=== PATIENT | male | born 1970 | race Caucasian/White ===

== ENCOUNTER 2016-08-18 09:34 | Emergency (ER) | payer OTHER ==
[~2016-08-18] VITALS: Ht 182.9 cm; Wt 98.9 kg
[~2016-08-18 09:34] MED LIST: ALBU0.08 INH; FLUT1INH INH; METH10SO PO
[2016-08-18 09:37] VITALS: BP 127/80; PULSE 77; TEMP 36.7; Ht 182.9 cm; Wt 98.9 kg
[2016-08-18 09:41] VITALS: O2SAT 94
[2016-08-18] MEDS ORDERED: FLUT1INH INH (09:56)
[2016-08-18] MEDS ORDERED: FLUT1INH PO (09:56)
[2016-08-18] MEDS ORDERED: PRED20TA PO (09:56)
[2016-08-18] MEDS ORDERED: VNTHFA/IN INH (09:56)
--- NOTE | 2016-08-18 10:02 | EMERGENCY ROOM VISIT NOTE ---
History Report prepared by Suki: Anshul Herrera Under the Supervision of: Dr. Sofia Barrios M.D. First contact with patient: 09:42 Chief Complaint: RESPIRATORY PROBLEMS Stated Complaint: DIFFICULTY BREATHING Nursing Triage Summary: "I'm having difficulty breathing. I'm out of Breo" per pt. History of Present Illness The patient is a 46 year old male who presents to the Emergency Room with complaints of persistent respiratory problems that started a few days ago. He says his insurance was recently canceled and it just got reinstated. As a result , the patient is now out of his powder inhaler, Breo Ellipta. The patient says he "cannot breathe" without this specific inhaler. He is here for a Breo Ellipta prescription as well as a steroid prescription. The patient is at this time trying to find a new primary care physician. Source of History: patient Onset: A few days ago Position: other (global - respiratory problems) Symptom Intensity: "cannot breathe" without Breo Ellipta Timing: other (persistent) Modifying Factors (Relieving): other (Breo Ellipta powder inhaler) Associated Symptoms: + SOB Note: No other associated symptoms. Review of Systems See HPI for pertinent positives & negatives. A total of 10 systems reviewed and were otherwise negative. Past Medical & Surgical Medical Problems: (1) Herniated disc (2) Laceration of right hand (3) Laceration of right hand (4) Pain, dental (5) PE (pulmonary embolism) Family History Cancer Heart disease Social History Smoking Status: Current Every Day Smoker Alcohol Use: none Drug Use: other Marital Status: single Occupation Status: unemployed Current/Historical Medications Scheduled Albuterol Soln (Proventil 0.083% 2.5MG/3ML), 2.5 MG INH QID Fluticasone Furoate-Vilanterol (Breo Ellipta), 1 INHA INH DAILY Methadone Hcl (Methadone Hcl), 151 MG PO DAILY Allergies Coded Allergies: No Known Allergies (Verified , 12/08/15) Physical Exam Vital Signs Date Time Temp Pulse Resp B/P Pulse Ox O2 Delivery O2 Flow Rate FiO2 08/18/16 09:41 94 Room Air 08/18/16 09:37 36.7 77 20 127/80 94 Room Air Physical Exam CONSTITUTIONAL: No distress. HEENT: No icterus, moist mucous membranes NECK: No meningismus, trachea is midline. CARDIOVASCULAR: Regular rate, normal perfusion RESPIRATORY: Mild wheezing bilaterally. GASTROINTESTINAL: Non-tender GENITOURINARY: No flank tenderness MUSCULOSKELETAL: Full range of motion NEUROLOGIC: No acute gross focal deficits. PSYCHIATRIC: Normal affect SKIN: Normal for ethnicity. Medical Decision & Procedures ED Course 0949: Past medical records reviewed. The patient was evaluated in room B7. A complete history and physical examination was performed. The patient verbally expressed understanding and agreement of the treatment plan. The patient will be discharged. Medical Decision Differential diagnoses include: wheezing, asthma. 46-year-old presented to the emergency room for medication refill of his inhaled steroid as well as albuterol as needed. He has no other complaints was mildly wheezing in all shah on exam. Attempted to electronically treated with prescriptions but the computer would not let me do so. Handwritten prescription for meds written. Patient had no other concerns or request today. Impression Primary Impression: Wheezing Additional Impression: Asthma Scribe Attestation The scribe's documentation has been prepared under my direction and personally reviewed by me in its entirety. I confirm that the note above accurately reflects all work, treatment, procedures, and medical decision making performed by me. Departure Information Dispostion Home / Self-Care Referrals No Doctor, Assigned (PCP) Forms HOME CARE DOCUMENTATION FORM, IMPORTANT VISIT INFORMATION, WORK / SCHOOL INSTRUCTIONS Patient Instructions A Signature Page, ED Wheezing, My [facility] Additional Instructions Rxs: Breo Ellipta, Albuterol MDI + spacer, Prednisone 20mg x 10 days.
== END 2016-08-18 10:15 | disposition home or self-care (01) ==
LOC: C.EDB 09:36
DX: J45.909 Unspecified asthma, uncomplicated (principal); F17.200 Nicotine dependence, unspecified, uncomplicated; Z79.899 Other long term (current) drug therapy

== ENCOUNTER 2023-08-29 10:18 | Inpatient (IN) ==
--- NOTE | 2023-08-29 10:53 | Emergency Department Note ---
Impression & Plan Acute renal failure, Abdominal pain ED Provider Note NAME: DRAKE ESPINOZA AGE: 53 SEX: M : 1970 ARRIVES VIA: Ambulance INFORMANT: Patient, ED PROVIDER(S): Harjeet Reid MD CHIEF COMPLAINT: Abdominal pain HPI: This is a 53-year-old male history of opiate use disorder currently on methadone presenting for abdominal pain. Patient states that he was here 2 days ago for similar abdominal pain. The abdominal pain previously was less severe and thought to be due to constipation. Patient had a CT imaging that did confirm this constipation. He was given enemas and magnesium citrate. Since then he has had numerous l loose stools. He notes that his pain is in his lower quadrants at this time and are worse than when he came in 2 days ago. He notes no nausea, vomiting. He states he did not get his methadone this morning, he came directly from methadone clinic via EMS. He was given 15 mg of Toradol and route. Denies any chest pain, pleurisy. ROS: See above HPI for pertinent positives & negatives. A total of 10 systems reviewed and were otherwise negative. PAST MEDICAL HISTORY: See Below PAST SURGICAL HISTORY: See Below FAMILY HISTORY: See Below SOCIAL HISTORY: See Below HOME MEDICATIONS: See Below ALLERGIES: See Below VITALS: See Below PHYSICAL EXAMINATION: General: resting comfortably in no acute distress Head: Normocephalic and atraumatic Eyes: Normal inspection, extraocular muscles intact Ear, nose, throat: Normal external exam Neck: Normal range of motion Respiratory: lungs clear to auscultation bilaterally Cardiovascular: Regular rate/rhythm, no murmur GI: Guarding, no rebound, diffusely tender Extremities: nontender, moves all extremities Neuro: The patient awake and alert, appropriately conversive, no focal deficits, symmetric faces Skin: Warm, dry, and intact MEDICAL DECISION MAKING: This is a 53-year-old male presenting for abdominal pain. Patient appears mildly uncomfortable will give Tylenol. Otherwise with patient tachycardia, will give fluid resuscitation as patient has been having profuse diarrhea -Blood work is significant abnormal with a new creatinine elevation to over 4 with previous value done less than 48 hours ago 0.69 -Patient's potassium hemolyzed x 2, [id number] was used in the meantime that shows slight hyperkalemia 5.3 -EKG reviewed showing no signs of peaked T waves or prolonged QRS -Patient also has significant hyponatremia hypochloremia, acidosis noted with low CO2, anion gap -Elevated lactate to 2.8 -Upon reevaluation, patient has been sleeping comfortably while here reevaluation of abdomen is less tender after Tylenol administration -Initially ordered for CT ab/pelvis with contrast however with EMIL, will use Noncon -CT abdomen/pelvis does reveal progressive nonspecific colitis, otherwise significant proved in stool burden from previous CT image -Patient CT chest shows emphysema without acute active chest process -Patient had multiple times after fluid resuscitation, shows to be improving vital signs and abdominal exam -Patient will require admission for clinical dehydration, EMIL, significant electrolyte abnormalities Differential diagnosis: SBO, bowel perforation, ischemic bowel, stercoral colitis ER treatment provided: See below Diagnostics interpreted by me: ECG: ECG independently interpreted by me with normal sinus rhythm, rate of 94, normal axis, normal IL, normal QRS, normal QTc, no ST segment elevations consistent with STEMI criteria Cardiac Monitoring: An order was placed for continuous cardiac monitoring. The monitor shows a rate of 92 with sinus rhythm. Laboratory studies: As stated above and show below. Imaging studies: See below. Critical Care Note: I have personally spent 30 minutes of critical care time in the direct management of this patient. This includes bedside care, interpretation of diagnostic studies, and testing, discussion with consultants, patient, and family members, and other required patient management activities. This 30 minutes is in excess of all separately billable procedures. Past Med/Surg History Medical History (Updated 08/29/23 @ 17:10 by Harjeet Reid MD) History of pulmonary embolism URI (upper respiratory infection) Opioid withdrawal COPD (chronic obstructive pulmonary disease) PE (pulmonary embolism) (09/27/13) Surgical History No significant past surgical history Social History Smoking Status: Current every day smoker Tobacco Type: Cigarettes Hx Alcohol Use: No Hx Substance Use: Yes Preferred Language: Romanian Communication Ability: Effective Beliefs That Will Affect Care: None Current Living Situation: Family Feels Safe at Home: Yes Allergies Allergies Allergy/AdvReac Type Severity Reaction Status Date / Time No Known Allergies Allergy Verified 08/28/23 01:45 Home Meds Home Medications Medication Instructions Recorded Confirmed methadone 10 mg/5 mL oral solution 136 mg PO DAILY 07/07/18 08/29/23 Results & Data (ED) Vital Signs Vital Signs - 24 hr 08/29/23 10:27 08/29/23 10:30 08/29/23 10:32 Temperature 36.5 C Temperature Source Oral Pulse Rate 109 H 108 H 106 H Pulse Rate [Right Finger] Pulse Rhythm Regular Respiratory Rate 24 24 Respiratory Effort / Characteristics Non-Labored Spontaneous Respiratory Depth Normal Respiratory Pattern Regular Blood Pressure 123/91 Blood Pressure [Right Arm] Blood Pressure Mean 101 Blood Pressure Mean [Right Arm] Pulse Oximetry 94 95 Oxygen Delivery Method Room Air Room Air Sepsis Recent Fever Within 48 Hours No Sepsis New/Unexplained Change in Mental Status N/A Sepsis Action Taken by Nursing Physician Notified 08/29/23 13:11 Temperature Temperature Source Pulse Rate Pulse Rate [Right Finger] 95 H Pulse Rhythm Respiratory Rate 20 Respiratory Effort / Characteristics Non-Labored Spontaneous Respiratory Depth Normal Respiratory Pattern Blood Pressure Blood Pressure [Right Arm] 158/95 H Blood Pressure Mean Blood Pressure Mean [Right Arm] 116 Pulse Oximetry 96 Oxygen Delivery Method Room Air Sepsis Recent Fever Within 48 Hours Sepsis New/Unexplained Change in Mental Status Sepsis Action Taken by Nursing Laboratory Data 08/29/23 10:47 08/29/23 16:21 Lab Results 08/29/23 08/29/23 08/29/23 Range/Units 10:47 11:40 12:10 WBC 17.09 H (4.8-10.8) K/ul RBC 6.34 H (4.70-6.10) M/uL Hgb 19.2 H (14.0-18.0) g/dl POC Hgb (14.0-18.0) g/dl Hct 52.5 H (42.0-52.0) % POC Hct (42-52) % MCV 82.8 (80.0-100.0) fL MCH 30.3 (25.0-34.0) pg MCHC 36.6 H (32.0-36.0) g/dL RDW Std Deviation 37.9 (36.4-46.3) fL RDW Coeff of Benny 12.5 (11.5-14.5) % Plt Count 250 (130-400) K/uL MPV 11.7 (9.4-12.4) fL Immature Gran % (Auto) 0.5 % Neut % (Auto) 71.3 % Lymph % (Auto) 16.7 % [place] % (Auto) 10.5 % Eos % (Auto) 0.1 % Baso % (Auto) 0.9 % Neut # (Auto) 12.18 H (1.40-6.50) K/uL Lymph # (Auto) 2.86 (1.20-3.40) K/uL [place] # (Auto) 1.80 H (0.11-0.59) K/uL Eos # (Auto) 0.01 (0.00-0.50) K/uL Baso # (Auto) 0.15 (0.00-0.20) K/uL Immature Gran # (Auto) 0.09 (0.01-0.20) K/uL VBG pH (7.36-7.41) VBG pCO2 (38-50) mmHg VBG pO2 mmHg VBG HCO3 mmol/L VBG O2 Saturation % VBG Base Excess mEq/L POC Sodium (135-144) mmol/L Sodium 122 L D (136-145) mmol/L POC Potassium (3.3-5.0) mmol/L Potassium TNP TNP TNP POC Chloride (101-112) mmol/L Chloride 90 L (98-107) mmol/L Carbon Dioxide 16 L (21-32) mmol/L POC Total CO2 (24-31) mmol/L Anion Gap 16 H (3-11) POC Anion Gap (16-25) mmol/L POC BUN (7-18) mg/dl BUN 52 H D (6-23) mg/dl Creatinine 4.24 H D (0.6-1.4) mg/dl POC Creatinine (0.6-1.3) mg/dl Est Cr Clr Drug Dosing 22.6 ml/min Est GFR ( Amer) 17.5 ml/min Est GFR (Non-Af Amer) 15.1 ml/min BUN/Creatinine Ratio 12.3 (10-20) Glucose 358 H* (70-99(Fasting)) mg/dl POC Glucose (other) (70-99) mg/dl Lactate 2.8 H* (0.4-2.0) mmol/L Calcium 11.9 H (8.6-10.3) mg/dl POC Ioniz Calcium Kt (1.12-1.32) mmol/l Total Bilirubin 1.1 H D (0.2-1.0) mg/dl AST TNP TNP TNP ALT 50 (7-52) U/L Alkaline Phosphatase 70 (34-104) U/L Total Protein 8.3 (6.0-8.3) gm/dl Albumin 3.6 (3.4-5.0) gm/dl Globulin 4.7 H (2.5-4.0) gm/dl Albumin/Globulin Ratio 0.8 L (0.9-2) Lipase 7 L (11-82) U/L 08/29/23 08/29/23 Range/Units 12:14 12:42 WBC (4.8-10.8) K/ul RBC (4.70-6.10) M/uL Hgb (14.0-18.0) g/dl POC Hgb 18.7 H (14.0-18.0) g/dl Hct (42.0-52.0) % POC Hct 55 H (42-52) % MCV (80.0-100.0) fL MCH (25.0-34.0) pg MCHC (32.0-36.0) g/dL RDW Std Deviation (36.4-46.3) fL RDW Coeff of Benny (11.5-14.5) % Plt Count (130-400) K/uL MPV (9.4-12.4) fL Immature Gran % (Auto) % Neut % (Auto) % Lymph % (Auto) % [place] % (Auto) % Eos % (Auto) % Baso % (Auto) % Neut # (Auto) (1.40-6.50) K/uL Lymph # (Auto) (1.20-3.40) K/uL [place] # (Auto) (0.11-0.59) K/uL Eos # (Auto) (0.00-0.50) K/uL Baso # (Auto) (0.00-0.20) K/uL Immature Gran # (Auto) (0.01-0.20) K/uL VBG pH 7.34 L (7.36-7.41) VBG pCO2 32 L (38-50) mmHg VBG pO2 43 mmHg VBG HCO3 17 mmol/L VBG O2 Saturation 67.9 % VBG Base Excess -7.1 mEq/L POC Sodium 123 L (135-144) mmol/L Sodium (136-145) mmol/L POC Potassium 5.3 H (3.3-5.0) mmol/L Potassium POC Chloride 94 L (101-112) mmol/L Chloride (98-107) mmol/L Carbon Dioxide (21-32) mmol/L POC Total CO2 19 L (24-31) mmol/L Anion Gap (3-11) POC Anion Gap 16.0 (16-25) mmol/L POC BUN 66 H (7-18) mg/dl BUN (6-23) mg/dl Creatinine (0.6-1.4) mg/dl POC Creatinine 4.4 H (0.6-1.3) mg/dl Est Cr Clr Drug Dosing ml/min Est GFR ( Amer) ml/min Est GFR (Non-Af Amer) ml/min BUN/Creatinine Ratio (10-20) Glucose (70-99(Fasting)) mg/dl POC Glucose (other) 336 H (70-99) mg/dl Lactate 2.5 H* (0.4-2.0) mmol/L Calcium (8.6-10.3) mg/dl POC Ioniz Calcium Kt 1.21 (1.12-1.32) mmol/l Total Bilirubin (0.2-1.0) mg/dl AST ALT (7-52) U/L Alkaline Phosphatase (34-104) U/L Total Protein (6.0-8.3) gm/dl Albumin (3.4-5.0) gm/dl Globulin (2.5-4.0) gm/dl Albumin/Globulin Ratio (0.9-2) Lipase (11-82) U/L Administered Medications Discontinued Medications Acetaminophen (Ofirmev) 1,000 mg in 100 mls @ 400 mls/hr IV NOW STA Stop: 08/29/23 11:33 Last Infusion: 08/29/23 11:39 Dose: Infused Documented By: Admin: 08/29/23 11:24 Dose: 400 mls/hr Documented By: YAKELIN Sodium Chloride (Nss) 1,000 mls @ 999 mls/hr IV .Q1H1M ONE Stop: 08/29/23 12:19 Last Infusion: 08/29/23 12:25 Dose: Infused Documented By: Admin: 08/29/23 11:24 Dose: 999 mls/hr Documented By: YAKELIN Sodium Chloride (Nss) 1,000 mls @ 999 mls/hr IV .Q1H1M ONE Stop: 08/29/23 13:01 Last Infusion: 08/29/23 14:07 Dose: Infused Documented By: Admin: 08/29/23 13:01 Dose: 999 mls/hr Documented By: HERO Sodium Chloride (Nss) 1,000 mls @ 999 mls/hr IV .Q1H1M ONE Stop: 08/29/23 15:31 Last Admin: 08/29/23 16:59 Dose: 999 mls/hr Documented By: CAR Imaging Data Radiologist's Impression: Abdomen/Pelvis CT 08/29/23 11:[address] WITHOUT CONTRAST CT DOSE: 2212.39 mGy.cm HISTORY: Generalized abdominal pain. Elevated creatinine. TECHNIQUE: Multiaxial CT images of the abdomen and pelvis were performed without contrast. A dose lowering technique was utilized adhering to the principles of ALARA. COMPARISON STUDY: Abdomen and pelvis CT 08/28/2023. FINDINGS: Mild dependent changes seen within the lungs posteriorly. No pneumoperitoneum. No pneumatosis. No acute fractures identified. The gallbladder is mildly distended. There are few punctate gallstones noted. No gallbladder wall thickening. Hepatic steatosis. Subtle nodular contour to the liver suggestive of early cirrhosis. The unenhanced pancreas, spleen, and adrenal glands are unremarkable. There are few small left renal stones, unchanged. No right renal calculi. No ureteral calculi. No hydronephrosis. Subcentimeter retroperitoneal lymph nodes remain unchanged. Normal caliber abdominal aorta. No pelvic lymphadenopathy or pelvic free fluid. Normal bladder. Suboptimal evaluation for bowel pathology due to the lack of intravenous and oral contrast. There are no dilated loops of bowel to suggest an obstruction. Normal appendix. The moderate to large amount of well-formed stool seen within the colon on the prior study has essentially resolved in the interval. There is mild circumferential thickening involving the majority of the transverse colon, descending colon, and proximal sigmoid colon with mild pericolonic fat stranding. This is consistent with a nonspecific colitis. There are few colonic diverticula. No evidence for acute diverticulitis. IMPRESSION: 1. The moderate to large amount of well-formed stool seen within the colon on the prior study has essentially resolved in the interval. 2. There is mild circumferential thickening involving the majority of the transverse colon, descending colon, and proximal sigmoid colon with mild pericolonic fat stranding. This has progressed in the interval and is consistent with a nonspecific colitis. This could be due to an infectious, inflammatory, or ischemic process. 3. Left-sided nephrolithiasis. No ureteral stones. No hydronephrosis. 4. Normal appendix. 5. Hepatic steatosis with suggestion of early cirrhosis. 6. Distended gallbladder containing a few punctate gallstones. No gallbladder wall thickening. 7. Additional findings as described above. ACT 112: Negative or not required by law. Electronically signed by: Ryan Dutta M.D. 08/29/2023 1:[address] 08/29/23 12:16 CT SCAN OF THE CHEST WITHOUT IV CONTRAST CLINICAL HISTORY: Dyspnea COMPARISON STUDY: Chest CT dated 09/10/2015. Chest x-ray dated 07/07/2018. TECHNIQUE: CT scan of the thorax was performed from the thoracic inlet to the upper abdomen. Images are reviewed in the axial, sagittal, and coronal planes. IV contrast was not administered for this examination as per the referring clinician. A dose lowering technique was utilized adhering to the principles of ALARA. The examination is degraded by motion artifact. FINDINGS: Thyroid: Imaged portions of the thyroid gland are normal in size and attenuation. Thoracic aorta: The thoracic aorta is normal in caliber and demonstrates bovine variant arch anatomy. Heart: The heart is normal in size and without pericardial effusion. Lungs and pleural spaces: Evaluation of the lung parenchyma is moderately degraded by motion artifact. Emphysematous changes observed. Scarring/atelectasis is noted at the lung bases. No airspace consolidation typical for pneumonia or pleural effusions identified. Mediastinum: There is no mediastinal lymphadenopathy. [place]: Not well assessed without IV contrast. Axillae: There is no axillary lymphadenopathy. Upper abdomen: The liver is steatotic. Partially visualized upper abdominal viscera is otherwise within normal limits. Skeletal structures: No lytic or blastic bony lesions are seen. Arthritic change is seen in the shoulders. IMPRESSION: Emphysematous change with no active disease in the chest. ACT 112: Negative or not required by law. Electronically signed by: Shayan Mendoza M.D. 08/29/2023 1:19 PM Discharge Plan Visit Data Chief Complaint: Abdominal Pain Stated Complaint: AB PAIN ED Provider: Harjeet Reid Discharge Problem: Acute renal failure, Abdominal pain Patient Disposition: Admitted As Inpatient Discharge Instructions Interventions: ED Discharge Assessment Last Done: 08/29/23 15:03
[2023-08-29 11:14] LABS: Basophils # (auto) 0.15 K/uL (0.00-0.20); Basophils % (auto) 0.9 %; Eosinophils # (auto) 0.01 K/uL (0.00-0.50); Eosinophils % (auto) 0.1 %; Hematocrit (blood only) 52.5 % (42.0-52.0); Hemoglobin 19.2 g/dl (14.0-18.0); Immature Granulocytes # (auto) 0.09 K/uL (0.01-0.20); Immature Granulocytes % (auto) 0.5 %; Lymphocytes # (auto) 2.86 K/uL (1.20-3.40); Lymphocytes % (auto) 16.7 %; Mean Corpuscular Hemoglobin 30.3 pg (25.0-34.0); Mean Corpuscular Hgb Conc 36.6 g/dL (32.0-36.0); Mean Corpuscular Volume 82.8 fL (80.0-100.0); Mean Platelet Volume 11.7 fL (9.4-12.4); Monocytes % (auto) 10.5 %; Neutrophils # (auto) 12.18 K/uL (1.40-6.50); Neutrophils % (auto) 71.3 %; Platelet Count 250 K/uL (130-400); RDW Coefficient of Variation 12.5 % (11.5-14.5); RDW Standard Deviation 37.9 fL (36.4-46.3); Red Blood Count 6.34 M/uL (4.70-6.10); White Blood Count 17.09 K/ul (4.8-10.8)
[2023-08-29] MEDS ORDERED: ACETAMINOPHEN 1,000 MG/100 ML VIAL IV STA (11:19)
[2023-08-29] MEDS ORDERED: SODIUM CHLORIDE 0.9% 1,000 ML IV ONE ×3 (11:19→14:31)
[2023-08-29 11:27] LABS: Alanine Aminotransferase 50 U/L (7-52); Albumin Globulin Ratio 0.8 (0.9-2); Albumin Level 3.6 gm/dl (3.4-5.0); Alkaline Phosphatase 70 U/L (34-104); Anion Gap 16 (3-11); BUN Creatinine Ratio 12.3 (10-20); Bilirubin,Total 1.1 mg/dl (0.2-1.0); Blood Urea Nitrogen 52 mg/dl (6-23); Calcium 11.9 mg/dl (8.6-10.3); Carbon Dioxide 16 mmol/L (21-32); Chloride 90 mmol/L (98-107); Creatinine Clr Calc Pharmacy 22.6 ml/min; Est GFR (African American) 17.5 ml/min; Est GFR (Non-African American) 15.1 ml/min; Globulin 4.7 gm/dl (2.5-4.0); Glucose 358 mg/dl (70-99(Fasting)); Lipase 7 U/L (11-82); Sodium 122 mmol/L (136-145); Total Protein 8.3 gm/dl (6.0-8.3)
[2023-08-29 12:29] LABS: iSTAT Creatinine 4.4 mg/dl (0.6-1.3); iSTAT Hemoglobin 18.7 g/dl (14.0-18.0); iSTAT Ionized Calcium 1.21 mmol/l (1.12-1.32); iSTAT Potassium 5.3 mmol/L (3.3-5.0)
[2023-08-29 13:02] LABS: Base Excess VBG -7.1 mEq/L; HCO3 VBG 17 mmol/L; Oxygen Saturation VBG 67.9 %; PCO2 VBG 32 mmHg (38-50); PO2 VBG 43 mmHg; pH VBG 7.34 (7.36-7.41)
--- NOTE | 2023-08-29 13:07 | CT Scan Report ---
ABDOMEN AND PELVIS CT WITHOUT CONTRAST CT DOSE: 2212.39 mGy.cm HISTORY: Generalized abdominal pain. Elevated creatinine. TECHNIQUE: Multiaxial CT images of the abdomen and pelvis were performed without contrast. A dose lo wering technique was utilized adhering to the principles of ALARA. COMPARISON STUDY: Abdomen and pelvis CT 08/28/2023. FINDINGS: Mild dependent changes seen within the lungs posteriorly. No pneumoperitoneum. No pneumatos is. No acute fractures identified. The gallbladder is mildly distended. There are few punctate gallst ones noted. No gallbladder wall thickening. Hepatic steatosis. Subtle nodular contour to the liver olivarez ggestive of early cirrhosis. The unenhanced pancreas, spleen, and adrenal glands are unremarkable. Th ere are few small left renal stones, unchanged. No right renal calculi. No ureteral calculi. No hydro nephrosis. Subcentimeter retroperitoneal lymph nodes remain unchanged. Normal caliber abdominal aorta . No pelvic lymphadenopathy or pelvic free fluid. Normal bladder. Suboptimal evaluation for bowel pat hology due to the lack of intravenous and oral contrast. There are no dilated loops of bowel to sugge st an obstruction. Normal appendix. The moderate to large amount of well-formed stool seen within the colon on the prior study has essentially resolved in the interval. There is mild circumferential thi ckening involving the majority of the transverse colon, descending colon, and proximal sigmoid colon with mild pericolonic fat stranding. This is consistent with a nonspecific colitis. There are few col onic diverticula. No evidence for acute diverticulitis. IMPRESSION: 1. The moderate to large amount of well-formed stool seen within the colon on the prior study has ess entially resolved in the interval. 2. There is mild circumferential thickening involving the majority of the transverse colon, descendin g colon, and proximal sigmoid colon with mild pericolonic fat stranding. This has progressed in the i nterval and is consistent with a nonspecific colitis. This could be due to an infectious, inflammator y, or ischemic process. 3. Left-sided nephrolithiasis. No ureteral stones. No hydronephrosis. 4. Normal appendix. 5. Hepatic steatosis with suggestion of early cirrhosis. 6. Distended gallbladder containing a few punctate gallstones. No gallbladder wall thickening. 7. Additional findings as described above. ACT 112: Negative or not required by law. Electronically signed by: Ryan Dutta M.D. 08/29/2023 1:06 PM
--- NOTE | 2023-08-29 13:21 | CT Scan Report ---
CT SCAN OF THE CHEST WITHOUT IV CONTRAST CLINICAL HISTORY: Dyspnea COMPARISON STUDY: Chest CT dated 09/10/2015. Chest x-ray dated 07/07/2018. TECHNIQUE: CT scan of the thorax was performed from the thoracic inlet to the upper abdomen. Images are reviewed in the axial, sagittal, and coronal planes. IV contrast was not administered for this ex amination as per the referring clinician. A dose lowering technique was utilized adhering to the stefani nciples of KATHY. The examination is degraded by motion artifact. FINDINGS: Thyroid: Imaged portions of the thyroid gland are normal in size and attenuation. Thoracic aorta: The thoracic aorta is normal in caliber and demonstrates bovine variant arch anatomy. Heart: The heart is normal in size and without pericardial effusion. Lungs and pleural spaces: Evaluation of the lung parenchyma is moderately degraded by motion artifact . Emphysematous changes observed. Scarring/atelectasis is noted at the lung bases. No airspace consol idation typical for pneumonia or pleural effusions identified. Mediastinum: There is no mediastinal lymphadenopathy. [place]: Not well assessed without IV contrast. Axillae: There is no axillary lymphadenopathy. Upper abdomen: The liver is steatotic. Partially visualized upper abdominal viscera is otherwise with in normal limits. Skeletal structures: No lytic or blastic bony lesions are seen. Arthritic change is seen in the shoul ders. IMPRESSION: Emphysematous change with no active disease in the chest. ACT 112: Negative or not required by law. Electronically signed by: Shayan Mendoza M.D. 08/29/2023 1:19 PM
--- NOTE | 2023-08-29 14:31 | History & Physical Report ---
Date of Service August 29, 2023 Assessment & Plan (1) Abdominal pain, acute: (2) Sepsis: (3) Lactic acidosis: (4) EMIL (acute kidney injury): (5) Acute hyponatremia: Admission and Anticipated Discharge Date Admission Date: This is a 53 yr old M who has a hx of COPD, GERD, hx of narcotic addiction, migraine and tobacco abuse who presented to ED 2/2 abdominal pain. Acute abdominal pain Colitis Possible sepsis -pt meets criteria 2/2 tachycardia,leukocytosis and presumed infection with colitis Lactic acidosis admit to tele pt will receive 3L of IVF in ED IV Cipro and Flagyl were ordered blood cultures ordered, UA ordered but not collected consult gastroenterology etiology - possibly infectious vs ischemic NPO EMIL pre renal 2/2 dehydration and GI Loss continue with aggressive fluid repletion cr 4.24 today, on 08/28 was 0.69 serial BMP Acute hyponatremia corrected sodium s 128 again 2/2 dehydration serial labs Hyperglycemia no previous dx of T2DM will obtain a1c in a.m lantus/novolog per protocol for now History of narcotic abuse currently receiving methadone ED pharmacist called [facility], he has not had a dose since 08/27. Will give 136mg dose tomorrow and then recommend reaching out to [facility] 08/31 to determine next dose as he is on tapering dose History of tobacco Encourage cessation DVT ppx: SQ Lovenox Dispo: PCU FULL CODE PCP: Matias Pt was seen and examined in collaboration with Dr. Lopez, please see addendum A total of 71 minutes was spent coordinating, documenting, and providing care for this patient excluding time spent in the performance of separately billed services. This included personally viewing all current laboratories and imaging studies, medication reconciliation, outpatient chart review, and discussion with specialists. History of Present Illness Chief Complaint: Abdominal pain x 2 days. Primary Care Provider: Aspen Salcedo This is a 53 yr old M who has a FULL CDOE of COPD, GERD, hx of narcotic addiction, migraine and tobacco abuse who presented to ED 2/2 abdominal pain. He presented to ED evening of 08/27 and into enrollment consultant hours of 08/28. He has a CT a/p which showed significant constipation. He received enema and mag citrate which resulted in a bowel movement. He was discharged home. Since this time he has had a significant amount of bowel movements ~ 40. He also continues to have diffuse persistent and worsening abd pain. He therefore presented back to the hospital. He denies any f/c/s, dizziness, chest pain, URI sx, vomiting, hematemesis, melena, hematochezia. He does have a headache. He has not had food for last 1.5 days. He has been keeping down water. He denies dysuria, increased freq/urg with urination and he has been urinating less. He smokes 1/2ppd but hasn't smoked in 1.5 days. He is a prior opiate abuser and currently on a taper of methadone. He denies alcohol use. Allergies Allergy/AdvReac Type Severity Reaction Status Date / Time No Known Allergies Allergy Verified 08/28/23 01:45 Home Medications Medication Instructions Recorded Confirmed Type methadone 10 mg/5 mL oral solution 136 mg PO DAILY 07/07/18 08/29/23 History Past Med/Surg History Medical History (Updated 08/29/23 @ 17:10 by Harjeet Reid MD) History of pulmonary embolism URI (upper respiratory infection) Opioid withdrawal COPD (chronic obstructive pulmonary disease) PE (pulmonary embolism) (09/27/13) Surgical History No significant past surgical history Social History Smoking Status: Current every day smoker Tobacco Type: Cigarettes Cigarettes Per Day: 8; Second Hand Exposure: No; Do You Dip or Chew Tobacco: No; Tobacco Cessation Education Requested by Patient: No Hx Alcohol Use: No Preferred Language: Serbian Communication Ability: Effective Investigator Narcotics Required: No Beliefs That Will Affect Care: None Current Living Situation: Family Current Living Situation Comment: BROTHER Other Information That Helps Us Care for You: No Feels Safe at Home: Yes Safety Concerns: Feels Safe At This Time Assistive Devices: None Review of Systems Review of Systems: All systems reviewed & are unremarkable except as noted in HPI & below Physical Exam Physical Exam: please refer to Dr. Lopez addendum for physical exam findings. Results & Data Results & Data Vital Signs (Past 12 Hours) Vital Signs Temp Pulse Pulse Resp BP BP Pulse Ox 08/29/23 13:11 95 H 20 158/95 H 96 08/29/23 10:32 106 H 08/29/23 10:30 108 H 24 95 08/29/23 10:27 36.5 C 109 H 24 123/91 94 O2 Del Method 08/29/23 13:11 Room Air 08/29/23 10:32 08/29/23 10:30 Room Air 08/29/23 10:27 Room Air Laboratory Results I have independently reviewed and interpreted patient's admitting labs including CBC, CMP,VBG, lipase Diagnostic Findings Abdomen/Pelvis CT 08/29/23 11:[address] WITHOUT CONTRAST CT DOSE: 2212.39 mGy.cm HISTORY: Generalized abdominal pain. Elevated creatinine. TECHNIQUE: Multiaxial CT images of the abdomen and pelvis were performed without contrast. A dose lowering technique was utilized adhering to the principles of ALARA. COMPARISON STUDY: Abdomen and pelvis CT 08/28/2023. FINDINGS: Mild dependent changes seen within the lungs posteriorly. No pneumoperitoneum. No pneumatosis. No acute fractures identified. The gallbladder is mildly distended. There are few punctate gallstones noted. No gallbladder wall thickening. Hepatic steatosis. Subtle nodular contour to the liver suggestive of early cirrhosis. The unenhanced pancreas, spleen, and adrenal glands are unremarkable. There are few small left renal stones, unchanged. No right renal calculi. No ureteral calculi. No hydronephrosis. Subcentimeter retroperitoneal lymph nodes remain unchanged. Normal caliber abdominal aorta. No pelvic lymphadenopathy or pelvic free fluid. Normal bladder. Suboptimal evaluation for bowel pathology due to the lack of intravenous and oral contrast. There are no dilated loops of bowel to suggest an obstruction. Normal appendix. The moderate to large amount of well-formed stool seen within the colon on the prior study has essentially resolved in the interval. There is mild circumferential thickening involving the majority of the transverse colon, descending colon, and proximal sigmoid colon with mild pericolonic fat stranding. This is consistent with a nonspecific colitis. There are few colonic diverticula. No evidence for acute diverticulitis. IMPRESSION: 1. The moderate to large amount of well-formed stool seen within the colon on the prior study has essentially resolved in the interval. 2. There is mild circumferential thickening involving the majority of the tr ansverse colon, descending colon, and proximal sigmoid colon with mild pericolonic fat stranding. This has progressed in the interval and is consistent with a nonspecific colitis. This could be due to an infectious, inflammatory, or ischemic process. 3. Left-sided nephrolithiasis. No ureteral stones. No hydronephrosis. 4. Normal appendix. 5. Hepatic steatosis with suggestion of early cirrhosis. 6. Distended gallbladder containing a few punctate gallstones. No gallbladder wall thickening. 7. Additional findings as described above. ACT 112: Negative or not required by law. Electronically signed by: Ryan Dutta M.D. 08/29/2023 1:[address] 08/29/23 12:16 CT SCAN OF THE CHEST WITHOUT IV CONTRAST CLINICAL HISTORY: Dyspnea COMPARISON STUDY: Chest CT dated 09/10/2015. Chest x-ray dated 07/07/2018. TECHNIQUE: CT scan of the thorax was performed from the thoracic inlet to the upper abdomen. Images are reviewed in the axial, sagittal, and coronal planes. IV contrast was not administered for this examination as per the referring clinician. A dose lowering technique was utilized adhering to the principles of ALARA. The examination is degraded by motion artifact. FINDINGS: Thyroid: Imaged portions of the thyroid gland are normal in size and attenuation. Thoracic aorta: The thoracic aorta is normal in caliber and demonstrates bovine variant arch anatomy. Heart: The heart is normal in size and without pericardial effusion. Lungs and pleural spaces: Evaluation of the lung parenchyma is moderately degraded by motion artifact. Emphysematous changes observed. Scarring/atelectasis is noted at the lung bases. No airspace consolidation typical for pneumonia or pleural effusions identified. Mediastinum: There is no mediastinal lymphadenopathy. [place]alia: Not well assessed without IV contrast. Axillae: There is no axillary lymphadenopathy. Upper abdomen: The liver is steatotic. Partially visualized upper abdominal viscera is otherwise within normal limits. Skeletal structures: No lytic or blastic bony lesions are seen. Arthritic change is seen in the shoulders. IMPRESSION: Emphysematous change with no active disease in the chest. ACT 112: Negative or not required by law. Electronically signed by: Shayan Mendoza M.D. 08/29/2023 1:19 PM Medications Administered Medication List Discontinued Medications Acetaminophen (Ofirmev) 1,000 mg in 100 mls @ 400 mls/hr IV NOW STA Stop: 08/29/23 11:33 Last Infusion: 08/29/23 11:39 Dose: Infused Documented By: Admin: 08/29/23 11:24 Dose: 400 mls/hr Documented By: YAKELIN Sodium Chloride (Nss) 1,000 mls @ 999 mls/hr IV .Q1H1M ONE Stop: 08/29/23 12:19 Last Infusion: 08/29/23 12:25 Dose: Infused Documented By: Admin: 08/29/23 11:24 Dose: 999 mls/hr Documented By: YAKELIN Sodium Chloride (Nss) 1,000 mls @ 999 mls/hr IV .Q1H1M ONE Stop: 08/29/23 13:01 Last Infusion: 08/29/23 14:07 Dose: Infused Documented By: Admin: 08/29/23 13:01 Dose: 999 mls/hr Documented By: HERO ECG Rate (beats per minute): 94 Rhythm: normal sinus Additional Comments: I have independently reviewed and interpreted patient's admitting EKG which revealed: 94 bpm, nsr, q wave noted in I II and AVF, no st t wave change COVID-19 Results Results COVID-19 Adm Lab Results: RBC 6.34 M/uL (4.70-6.10) H 08/29/23 WBC 17.09 K/ul (4.8-10.8) H 08/29/23 Hgb 19.2 g/dl (14.0-18.0) H 08/29/23 Hct 52.5 % (42.0-52.0) H 08/29/23 Plt Count 250 K/uL (130-400) 08/29/23 Neutrophils (%) (Auto) 71.3 % 08/29/23 Lymphocytes (%) (Auto) 16.7 % 08/29/23 Monocytes # (Auto) 1.80 K/uL (0.11-0.59) H 08/29/23 Eosinophils # (Auto) 0.01 K/uL (0.00-0.50) 08/29/23 Immature Granulocyte % (Auto) 0.5 % 08/29/23 Neutrophils # (Auto) 12.18 K/uL (1.40-6.50) H 08/29/23 Lymphocytes # (Auto) 2.86 K/uL (1.20-3.40) 08/29/23 Monocytes # (Auto) 1.80 K/uL (0.11-0.59) H 08/29/23 Eosinophils # (Auto) 0.01 K/uL (0.00-0.50) 08/29/23 Basophils # (Auto) 0.15 K/uL (0.00-0.20) 08/29/23 Immature Granulocyte # (Auto) 0.09 K/uL (0.01-0.20) 4 Na 123 mmol/L (136-145) L 08/29/23 K 4.5 mmol/L (3.5-5.1) 08/29/23 Cl 95 mmol/L (98-107) L 08/29/23 CO2 15 mmol/L (21-32) L 08/29/23 Anion Gap 13 (3-11) H 08/29/23 BUN 56 mg/dl (6-23) H 08/29/23 Creatinine 4.29 mg/dl (0.6-1.4) H 08/29/23 BUN/Creatinine Ratio 13.1 (10-20) 08/29/23 Glucose Level 288 mg/dl (70-99(Fasting)) H 08/29/23 Ca 9.9 mg/dl (8.6-10.3) 08/29/23 Phosphorus Level 5.7 mg/dl (2.5-4.9) H 08/29/23 Total Bilirubin 1.1 mg/dl (0.2-1.0) H 08/29/23 AST/SGOT 22 U/L (13-39) 08/29/23 ALT/SGPT 50 U/L (7-52) 08/29/23 Alkaline Phosphatase 70 U/L (34-104) 08/29/23 Total Protein 8.3 gm/dl (6.0-8.3) 08/29/23 Albumin 3.6 gm/dl (3.4-5.0) 08/29/23 Globulin 4.7 gm/dl (2.5-4.0) H 08/29/23 Albumin/Globulin Ratio 0.8 (0.9-2) L 08/29/[address] 08/29/23 Code Status & VTE Plan Code Status FULL CODE VTE Prophylaxis Plan VTE Prophylaxis will be ordered: Yes Supervising Physician Co-Signing Physician Notes History and physical exam performed by me 53 year old man with history of opioid use disorder currently on methadone who presents with worsening abd pain. Had presented to ER 2 days ago with abd pain, was found to be constipated and treated with enema and bowel regimen. Reported he has been having diarrhea since dc from ER, stated over 40 times, watery BM, nonbloody He reports worsening generalized abd pain, crampy, severe, not referred. No fever, chills Reports some SOB. No cough, sorethroat, congestion. Smokes 10 cig per day Reports anorexia, reduced urine output. No dysuria, freq, urgency On exam, General: Ill looking, in no distress Eyes: PERRL, conjunctivae normal, not pale, anicteric sclerae, EOM intact bilaterally ENMT: Dry oral mucosa Respiratory: Normal respiratory effort, no respiratory distress, lungs clear to auscultation, no crackles and no wheezes Cardiovascular: Tachycardic, S1 S2 Gastrointestinal (Abdomen): Abdomen is not distended, soft,+ generalized tenderness, +bowel sounds Musculoskeletal: No pedal edema Neurologic: Alert and oriented x 3, No focal weakness, sensation grossly intact Psychiatric: Alert and oriented x 3, euthymic affect Labs notable for WBC 17, Hb 19.2, HCt 52.5, Na 123 (127 corrected for hyperglycemia), K 5.3, AGAP 16, Bicarb 16, BUN 52, Cr 4.24, Glucose 358, Lactate 2.8-2.5, Abd CT today show moderate to large stool seen in CT from yesterday in ER has essentially resolved. However, there is mild circumferential thickening of transverse, descendgin and proximal sigmoid colon. Left sided nephrolithiasis without ureteral stone/hydronephrosis Acute kidney injury Dehydration Colitis Possible Sepsis Hyponatremia Elevated lactic acid EMIL likely due to GI losses from diarrhea Cr 4.24 today, was 0.69 yesterday Hyponatremia likely due to GI losses. Hypovolemic hyponatremia Got 2L IVF NSS bolus in ER Patient needs more hydration. Get repeat BMP, lactate Give another IVF Will put on bowel rest Patient does meet criteria for SIRS with leukocytosis and tachycardia. Hence possible Sepsis due to colitis Get blood cultures Repeat lactate Get procal IV cipro and flagyl Bowel rest GI consult. Monitor hyponatremia Other plans as detailed by Fabiola Zamora PA-C I spent a total of 50 minutes coordinating, documenting and providing care for this patient excluding time spent in performance of separately billed services
[2023-08-29 14:46] LABS: Potassium 4.4 mmol/L (3.5-5.1)
[2023-08-29] MEDS ORDERED: CIPROFLOXACIN / D5W 400 MG/200 ML BAG IV STA (15:07)
[2023-08-29] MEDS ORDERED: metroNIDAZOLE 500 MG/100 ML BAG IV STA (15:08)
[2023-08-29 16:22] LABS: Anion Gap 13 (3-11); BUN Creatinine Ratio 13.1 (10-20); Blood Urea Nitrogen 56 mg/dl (6-23); Calcium 9.9 mg/dl (8.6-10.3); Carbon Dioxide 15 mmol/L (21-32); Chloride 95 mmol/L (98-107); Creatinine Clr Calc Pharmacy 22.4 ml/min; Est GFR (African American) 17.3 ml/min; Est GFR (Non-African American) 14.9 ml/min; Glucose 288 mg/dl (70-99(Fasting)); Magnesium 2.5 mg/dl (1.7-2.4); Phosphorus 5.7 mg/dl (2.5-4.9); Sodium 123 mmol/L (136-145)
[2023-08-29 16:34] LABS: Base Excess VBG -8.1 mEq/L; HCO3 VBG 15 mmol/L; PCO2 VBG 25 mmHg (38-50); PO2 VBG 63 mmHg; pH VBG 7.39 (7.36-7.41)
[2023-08-29] MEDS ORDERED: SODIUM CHLORIDE 0.9% 500 ML IV ONE (16:42)
[2023-08-29] MEDS ORDERED: CARBOHYDRATES FOR HYPOGLYCEMIA PO PRN (16:55)
[2023-08-29] MEDS ORDERED: LACTATED RINGER'S 1,000 ML IV SCH (16:55)
[2023-08-29] MEDS ORDERED: GLUCAGON FOR INJ 1 MG VIAL SQ PRN (16:55)
[2023-08-29] MEDS ORDERED: GLUCOSE 40% GEL 15 GM TUBE PO PRN (16:55)
[2023-08-29] MEDS ORDERED: DEXTROSE 50% 50 ML SYRINGE IV PRN (16:55)
[2023-08-29] MEDS ORDERED: GLUCOSE 10 TAB/TUBE PO PRN (16:55)
[2023-08-29] MEDS ORDERED: PATIENT'S OWN CONTROLLED MED 1 PO PRN (17:19)
[2023-08-29] MEDS: INSULIN ASPART PER UNIT CHARGE SC SCH ×2 (17:36→21:27)
[2023-08-29] MEDS ORDERED: PHARMACY GLYCEMIC MGMT CONSULT PRN (18:33)
[2023-08-29 18:36] LABS: Appearance Urine Clear (Clear); Bacteria Urine Automated Negative (Negative); Bilirubin Urine Negative (Negative); Blood Urine Negative (Negative); Color Urine Yellow; Glucose Urine UA 2+ (Negative); Ketones Urine Trace (Negative); Leukocyte Esterase Urine Negative (Negative); Nitrite Urine Negative (Negative); Protein Urine 2+ (Negative); RBC Urine Automated 0-4 /hpf (0-4); Specific Gravity Urine 1.013 (1.000-1.030); Urobilinogen Urine Negative (Negative)
[2023-08-29] MEDS: SODIUM CHLORIDE 0.9% 1,000 ML IV SCH (18:40)
--- NOTE | 2023-08-29 19:19 | Pharmacy Report ---
Pharmacy Glycemic Short Note 2 - Date of Service August 29, 2023 - Glycemic Short BSG Results (Last 24 hours): 08/29/23 08/29/23 08/29/23 10:47 12:14 15:45 Glucose 358 H* 288 H POC Glucose POC Glucose (other) 336 H 08/29/23 17:25 Glucose POC Glucose 306 H* POC Glucose (other) OUTPATIENT ANTIDIABETIC REGIMEN: * n/a ASSESSMENT: * 53 year old admitted with ongoing abdominal pain/nausea and vomiting. PMHx significant for COPD, GERD, narcotic addiction. Patient also with significant EMIL. Pharmacy consulted for glycemic management as BSGs in 300s - A1c ordered for tomorrow * Conservative scale for basal added on at HS along with novolog. Patient NPO PLAN FOR INPATIENT GLYCEMIC CONTROL: * Hold outpatient oral diabetes medications * Basal insulin * Lantus 0-8 units SQ BID * Bolus insulin * NovoLog per scale ACHS or Q6hrs while NPO * Goal Range: Low 120 mg/dL - High 160 mg/dL * Correction Factor: 45 mg/dL/unit * Nutritional / Prandial insulin per carb ratio of 1 unit per 15 grams CHO consumed
[2023-08-29] MEDS: ACETAMINOPHEN 325 MG TAB PO PRN (20:08)
[2023-08-29 20:26] LABS: BUN Creatinine Ratio 13.6 (10-20); Calcium 9.1 mg/dl (8.6-10.3); Creatinine Clr Calc Pharmacy 22.5 ml/min; Est GFR (African American) 17.4 ml/min; Potassium 4.2 mmol/L (3.5-5.1)
[2023-08-29] MEDS ORDERED: LANTUS PER UNIT CHARGE SQ SCH (21:00)
[2023-08-29] MEDS: ENOXAPARIN INJ 30 MG/0.3 ML SYR SQ SCH (21:43)
[2023-08-29 23:25] LABS: BUN Creatinine Ratio 14.2 (10-20); Calcium 9.2 mg/dl (8.6-10.3); Creatinine Clr Calc Pharmacy 22.6 ml/min; Est GFR (African American) 17.5 ml/min; Est GFR (Non-African American) 15.1 ml/min; Potassium 4.2 mmol/L (3.5-5.1)
[2023-08-30] MEDS: metroNIDAZOLE 500 MG/100 ML BAG IV SCH ×3 (01:06→16:45)
[2023-08-30] MEDS: INSULIN ASPART PER UNIT CHARGE SC SCH ×7 (01:06→23:46)
[2023-08-30] MEDS: SODIUM CHLORIDE 0.9% 1,000 ML IV SCH ×3 (02:26→15:26)
[2023-08-30] MEDS ORDERED: Nursing to Pharmacy Communication SCH (04:15)
[2023-08-30 04:28] LABS: BUN Creatinine Ratio 15.2 (10-20); Calcium 8.9 mg/dl (8.6-10.3); Creatinine Clr Calc Pharmacy 22.4 ml/min; Est GFR (African American) 17.3 ml/min; Est GFR (Non-African American) 14.9 ml/min; Potassium 4.1 mmol/L (3.5-5.1)
--- NOTE | 2023-08-30 07:55 | Pharmacy Report ---
Pharmacy Glycemic Short Note 2 - Date of Service August 30, 2023 - Glycemic Short BSG Results (Last 24 hours): 08/29/23 08/29/23 08/29/23 10:47 12:14 15:45 Glucose 358 H* 288 H POC Glucose POC Glucose (other) 336 H 08/29/23 08/29/23 08/29/23 17:25 19:53 20:13 Glucose 262 H POC Glucose 306 H* 278 H POC Glucose (other) 08/29/23 08/30/23 08/30/23 22:34 00:14 03:24 Glucose 242 H 215 H POC Glucose 285 H POC Glucose (other) 08/30/23 08/30/23 03:48 07:18 Glucose POC Glucose 226 H 218 H POC Glucose (other) OUTPATIENT ANTIDIABETIC REGIMEN: * n/a ASSESSMENT: 08/30/22 * Patient received 24 units of insulin yesterday, 10 units basal, BSGs remain in 200s, increase basal and tighten CF/CR and goal range. 08/29/22 * 53 year old admitted with ongoing abdominal pain/nausea and vomiting. PMHx significant for COPD, GERD, narcotic addiction. Patient also with significant EMIL. Pharmacy consulted for glycemic management as BSGs in 300s - A1c ordered for tomorrow * Conservative scale for basal added on at HS along with novolog. Patient NPO PLAN FOR INPATIENT GLYCEMIC CONTROL: * Basal insulin * Lantus 0-15 units SQ BID * Bolus insulin * NovoLog per scale ACHS or Q6hrs while NPO * Goal Range: Low 110 mg/dL - High 140 mg/dL * Correction Factor: 20 mg/dL/unit * Nutritional / Prandial insulin per carb ratio of 1 unit per 7 grams CHO consumed
[2023-08-30] MEDS: LANTUS PER UNIT CHARGE SQ SCH ×2 (08:25→20:44)
[2023-08-30] MEDS: METHADONE ORAL SOLN 2 MG/ML PO SCH (08:35)
[2023-08-30 08:42] LABS: Basophils # (auto) 0.07 K/uL (0.00-0.20); Basophils % (auto) 0.7 %; Eosinophils # (auto) 0.12 K/uL (0.00-0.50); Eosinophils % (auto) 1.1 %; Hematocrit (blood only) 43.3 % (42.0-52.0); Hemoglobin 15.5 g/dl (14.0-18.0); Immature Granulocytes # (auto) 0.06 K/uL (0.01-0.20); Immature Granulocytes % (auto) 0.6 %; Lymphocytes # (auto) 2.63 K/uL (1.20-3.40); Lymphocytes % (auto) 24.9 %; Mean Corpuscular Hemoglobin 30.1 pg (25.0-34.0); Mean Corpuscular Hgb Conc 35.8 g/dL (32.0-36.0); Mean Corpuscular Volume 84.1 fL (80.0-100.0); Mean Platelet Volume 11.5 fL (9.4-12.4); Monocytes # (auto) 1.09 K/uL (0.11-0.59); Monocytes % (auto) 10.3 %; Neutrophils # (auto) 6.61 K/uL (1.40-6.50); Neutrophils % (auto) 62.4 %; Platelet Count 197 K/uL (130-400); RDW Coefficient of Variation 12.7 % (11.5-14.5); RDW Standard Deviation 38.9 fL (36.4-46.3); Red Blood Count 5.15 M/uL (4.70-6.10); White Blood Count 10.58 K/ul (4.8-10.8)
[2023-08-30 08:51] LABS: Creatinine Clr Calc Pharmacy 23.6 ml/min; Est GFR (African American) 18.5 ml/min; Est GFR (Non-African American) 15.9 ml/min; Potassium 4.2 mmol/L (3.5-5.1)
[2023-08-30 08:52] LABS: Albumin Globulin Ratio 0.8 (0.9-2); Albumin Level 2.8 gm/dl (3.4-5.0); BUN Creatinine Ratio 15.5 (10-20); Bilirubin,Total 0.7 mg/dl (0.2-1.0); Creatinine Clr Calc Pharmacy 23.3 ml/min; Est GFR (African American) 18.2 ml/min; Est GFR (Non-African American) 15.7 ml/min; Globulin 3.6 gm/dl (2.5-4.0); Magnesium 2.5 mg/dl (1.7-2.4); Total Protein 6.4 gm/dl (6.0-8.3)
[2023-08-30 08:53] LABS: Estimated Average Glucose 194 mg/dl; Hemoglobin A1C 8.4 % (4.5-5.6)
--- NOTE | 2023-08-30 09:40 | Ultrasound Report ---
RENAL ULTRASOUND HISTORY: Acute bilateral flank pain kidney injury COMPARISON: CT 08/29/2023. FINDINGS: Right kidney: 12.0 cm. No hydronephrosis. Normal corticomedullary differentiation and cortical thickn ess. Left kidney: 14.0 cm. Left renal calculi are again noted measuring up to 5 mm. A column of Cory is noted. No hydronephrosis. Normal corticomedullary differentiation and cortical thickness. Bladder: No bladder wall thickening. The left ureteral jet is identified. IMPRESSION: Left nephrolithiasis without hydronephrosis. ACT 112: Negative or not required by law. Electronically signed by: Tico Jenkins M.D. 08/30/2023 9:39 AM
[2023-08-30] MEDS ORDERED: bisacodyL 5 MG TABEC PO ONE (10:35)
[2023-08-30] MEDS ORDERED: POLYETHYLENE (MIRALAX) 17 GM PACK PO ONE (10:36)
--- NOTE | 2023-08-30 11:41 | Nephrology Consultation ---
Date of Consultation August 30, 2023 Assessment & Plan (1) Acute renal failure: severe/ Stage III nonoliguric acute kidney injury likely multifactorial ischemic ATN in the setting of IV contrast and volume depletion from excessive bowel movements. Baseline creatinine 0.7. up to 4.2 about 36 hours later and at 4.1 today. not oliguric. no indication currently for emergent dialysis but cannot rule out the need this admission IV fluids as below Daily basic metabolic panel Strict intake and output particularly urine output Continue avoidance of nephrotoxins including IV contrast unless life or limb saving and NSAIDs Care coordinated w/ Dr Yuan (2) Acute hyponatremia: sodium on tests changed from 1 31->1 22 in about 36 hours; however reading of 122 corrects to 126. pt also w/ chronic hyponatremia based on [facility] records. Sodium has increased in the past 24 hours to 133, and BG remains elevated today at 200. Rate of change is acceptable Goal is normal serum sodium in AM -daily bmp (3) Metabolic acidosis: On presentation he had an anion gap metabolic acidosis with elevated lactate and hyperglycemia with ketonuria; gap has since closed in the setting of aggressive therapy with normal saline. lactic acid has normalized. hyperglycemia being addressed. Currently with at least borderline hyperchloremic non-anion gap metabolic acidosis likely related to saline therapy -Changed IVF to balanced solution>1/2 NS w/ 75 mEq/L sodium bicarb at 80 mL /hr History of Present Illness Reason for Consultation: Dr Yuan Requesting Physician: Hyponatremia, acute kidney injury, metabolic acidosis Attending Physician: Cecy Yuan MD History of Present Illness 53-year-old male whom I am asked to evaluate for hyponatremia, metabolic acidosis, acute kidney injury was admitted yesterday afternoon with sepsis and colitis, unclear if infectious or ischemic etiology. Past medical history includes COPD, GERD, narcotic addiction, migraine headaches, tobacco abuse. His presenting creatinine was 4.2, up from 0.7 on August 28; presenting sodium on August 29 was 122 after a value of 131 about 36 hours prior. Sodium today is 133. Carbon dioxide on presentation on August 28 was within normal limits; dropped to 08/29 and is up to 17 today. Of note his glucose was 358 on arrival here for this admission with hemoglobin A1c of 8.4%. He was evaluated in the ER on August 28, the day before admission for complaints of right lower quadrant abdominal pain. He had a liter of normal saline and did receive IV contrast for a CT of his abdomen. He received an enema and mag citrate which resulted per his report and about 40 bowel movements before he represented to the hospital. No further BM since arrival He is currently receiving normal saline at 150 mL hourly as well as Cipro and Flagyl; he received 3.5 L of saline prior to current standing dose with 1.7 L urine output. GI evaluated the patient and their impression is that he has severe constipation which they are addressing. pt had not had bm when I evaluated him at approx 1130 AM today. still w/ significant abd pain and sleepy. no sob, no n/v, no chills or F, no rash, no edema. no new/worrisome voiding symptoms. he did cough up blood today and had done similarly about one month back Allergies Allergy/AdvReac Type Severity Reaction Status Date / Time No Known Allergies Allergy Verified 08/28/23 01:45 Home Medications Medication Instructions Recorded Confirmed Type methadone 10 mg/5 mL oral solution 136 mg PO DAILY 07/07/18 08/29/23 History Patient History Medical History (Updated 08/30/23 @ 12:08 by NICOLE Recinos) Tobacco abuse History of pulmonary embolism URI (upper respiratory infection) Opioid withdrawal COPD (chronic obstructive pulmonary disease) PE (pulmonary embolism) (09/27/13) Surgical History No significant past surgical history Social History Smoking Status: Current every day smoker Tobacco Type: Cigarettes Cigarettes Per Day: 8; Second Hand Exposure: No; Do You Dip or Chew Tobacco: No; Tobacco Cessation Education Requested by Patient: No Hx Alcohol Use: No Preferred Language: Georgian Communication Ability: Effective Display Decorator Required: No Beliefs That Will Affect Care: None Current Living Situation: Family Current Living Situation Comment: BROTHER Other Information That Helps Us Care for You: No Feels Safe at Home: Yes Safety Concerns: Feels Safe At This Time Assistive Devices: Glasses Review of Systems 2 Review of Systems: All systems reviewed & are unremarkable except as noted in HPI & below and All systems reviewed & are unremarkable except as noted in Subjective Physical Exam 2 Constitutional: well developed, well nourished and cooperative (tired); no acute distress Eyes: EOM intact bilaterally ENMT: Ears: no external ear abnormality Nose: no external nose abnormality Mouth: + dry oral mucous membranes Neck: no nuchal rigidity Respiratory: normal respiratory effort Auscultation: + diminished lung sounds Cardiovascular: RRR, no murmur, no edema Gastrointestinal (Abdomen): Inspection/Auscultation: normal bowel sounds P ercussion/Palpation: + abdomen tender (diffusely to moderate palpation) and abdomen soft; no guarding and no ascites Musculoskeletal: Extremities: strength 5/5 throughout Skin: no rashes, warm and dry Neurologic: gonzalez, fluent speech, no tremor Psychiatric: Orientation: oriented x 3 Results & Data Vital Signs (Past 12 Hours) Vital Signs Temp Pulse Pulse Resp BP Pulse Ox O2 Del Method 08/30/23 07:44 36.5 C 97 H 20 145/89 H 96 Room Air 08/30/23 07:19 81 08/30/23 03:16 36.5 C 91 H 18 153/95 H 95 Room Air 08/30/23 02:22 81 Laboratory Results 08/30/23 07:51 08/30/23 07:51 VBG reviewed Urinalysis: Clear yellow urine pH of 6 and specific gravity 1013 with 2+ protein and glucose and trace ketones; between 10 and 30 white cells and epithelial cells. All other indices negative Diagnostic Findings CT a/p non con FINDINGS: Mild dependent changes seen within the lungs posteriorly. No pneumoperitoneum. No pneumatosis. No acute fractures identified. The gallbladder is mildly distended. There are few punctate gallstones noted. No gallbladder wall thickening. Hepatic steatosis. Subtle nodular contour to the liver suggestive of early cirrhosis. The unenhanced pancreas, spleen, and adrenal glands are unremarkable. There are few small left renal stones, unchanged. No right renal calculi. No ureteral calculi. No hydronephrosis. Subcentimeter retroperitoneal lymph nodes remain unchanged. Normal caliber abdominal aorta. No pelvic lymphadenopathy or pelvic free fluid. Normal bladder. Suboptimal evaluation for bowel pathology due to the lack of intravenous and oral contrast. There are no dilated loops of bowel to suggest an obstruction. Normal appendix. The moderate to large amount of well-formed stool seen within the colon on the prior study has essentially resolved in the interval. There is mild circumferential thickening involving the majority of the transverse colon, descending colon, and proximal sigmoid colon with mild pericolonic fat stranding. This is consistent with a nonspecific colitis. There are few colonic diverticula. No evidence for acute diverticulitis. IMPRESSION: 1. The moderate to large amount of well-formed stool seen within the colon on the prior study has essentially resolved in the interval. 2. There is mild circumferential thickening involving the majority of the transverse colon, descending colon, and proximal sigmoid colon with mild pericolonic fat stranding. This has progressed in the interval and is consistent with a nonspecific colitis. This could be due to an infectious, inflammatory, or ischemic process. 3. Left-sided nephrolithiasis. No ureteral stones. No hydronephrosis. 4. Normal appendix. 5. Hepatic steatosis with suggestion of early cirrhosis. 6. Distended gallbladder containing a few punctate gallstones. No gallbladder wall thickening. 7. Additional findings as described above. CT chest non con Thyroid: Imaged portions of the thyroid gland are normal in size and attenuation. Thoracic aorta: The thoracic aorta is normal in caliber and demonstrates bovine variant arch anatomy. Heart: The heart is normal in size and without pericardial effusion. Lungs and pleural spaces: Evaluation of the lung parenchyma is moderately degraded by motion artifact. Emphysematous changes observed. Scarring/atelectasis is noted at the lung bases. No airspace consolidation typical for pneumonia or pleural effusions identified. Mediastinum: There is no mediastinal lymphadenopathy. Idalia: Not well assessed without IV contrast. Axillae: There is no axillary lymphadenopathy. Upper abdomen: The liver is steatotic. Partially visualized upper abdominal viscera is otherwise within normal limits. Skeletal structures: No lytic or blastic bony lesions are seen. Arthritic change is seen in the shoulders. IMPRESSION: Emphysematous change with no active disease in the chest. CT abdomen pelvis with IV contrast August 28 Lung bases: Unremarkable. No mass. No consolidation. ABDOMEN: Liver: Unremarkable. No mass. Gallbladder and bile ducts: Unremarkable. No calcified stones. No ductal dilation. Pancreas: Unremarkable. No mass. No ductal dilation. Spleen: Unremarkable. No splenomegaly. Adrenals: Unremarkable. No mass. Kidneys and ureters: Small stones within the left kidney, largest measuring 3.3 mm. Left lower renal pole low-attenuation structure measuring 10 mm consistent with simple renal cyst. Otherwise normal left kidney. Normal right kidney. Stomach and bowel: Significant increased fecal debris within the colon more severe through the distal portion and sigmoid consistent with constipation/fecal impaction. Mild thickening of the wall throughout the transverse colon, cannot exclude mild colitis. No obstruction. PELVIS: Appendix: Normal appendix. Bladder: Unremarkable. No mass. Reproductive: Unremarkable as visualized. ABDOMEN and PELVIS: Intraperitoneal space: Unremarkable. No free air. No significant fluid collection. Bones/joints: No acute fracture. No dislocation. Soft tissues: Unremarkable. Vasculature: Unremarkable. No abdominal aortic aneurysm. Lymph nodes: Mild fullness of the periaortic lymph nodes, largest measuring 1.6 x 0.8 cm, etiology indeterminant and, associated with nonspecific inflammatory response. IMPRESSION: 1. Severe constipation with fecal impaction. Possible mild transverse colitis. No acute appendicitis or bowel obstruction. 2. Nonobstructive stones within the left kidney, largest measuring 2.3 mm. 10 mm simple cyst within the lower pole of the left kidney with no further follow-up imaging recommended. Remainder of abdomen is unremarkable. 3. Mild fullness of the para-aortic lymph nodes as described which may be associated with nonspecific inflammatory response, follow-up recommended if indicated.
--- NOTE | 2023-08-30 11:58 | Gastrointestinal Consultation ---
Date of Consultation August 30, 2023 Assessment & Plan (1) Constipation: Chronic, Narcotic induced. (2) Abnormal CT of the abdomen: Colitis on CT, likely represents stercoral colitis (caused by the constipation) Plan Dulcolax/Miralax purge. Then a bowel regime, such as Miralax 2x/day, Dulcolax one tab in the evening if he hasn't had a BM that day. Plan for OP colonoscopy. Pt agrees to this plan. Supervising Physician Co-Signing Physician Notes I performed a history and physical examination of the patient today, including specifically on physical exam - soft abdomen. I have discussed the patient's management with the advanced practitioner. Please refer to the nurse practitioner's note for the documented findings and plan of care. Opioid induced constipation with colitis. Bowel purge then daily Laxatives. OP Colonoscopy. Recall GI if needed. History of Present Illness Reason for Consultation: Colitis Requesting Physician: Fabiola Zamora PA-C Attending Physician: Cecy Yuan MD History of Present Illness Mr. Kendell Iqbal is a 53 yr old male w/o a PCP, who carries a hx of opioid use disorder (tells me started w prescription po meds for back pain, obtained street meds but denies any IV/IN drug use and says no inappropriate use since started methadone 8 yrs ago). He was at [facility] ED for abd pain, recommended laxatives and discharged. He returned because the laxatives caused a lot of diarrhea (reports about 20-40 episodes that night) and abd pain continued. He reports small amounts of bright red blood intermittently with bowel movements over the past year or 2 but denies any increase in bleeding and no black bowel movements. he is seen, examined while resting in bed and tells me that his abd pain continues and describes it is bilateral lower abd cramping pain. On return to the ED yesterday, CT w continued constipation and w circumferential bowel wall thickening of the transverse, descending and proximal sigmoid colon. He also had leukocytosis (17 yesterday has renal dysfunction (normal labs on 08/28, then significantly elevated on 08/29, today BUN 56, Cr 4.29 - possibly secondary to CT w IV contrast on 08/28? followed by significant diarrhea). Allergies Allergy/AdvReac Type Severity Reaction Status Date / Time No Known Allergies Allergy Verified 08/28/23 01:45 Home Medications Medication Instructions Recorded Confirmed Type methadone 10 mg/5 mL oral solution 136 mg PO DAILY 07/07/18 08/29/23 History Patient History Medical History (Updated 08/30/23 @ 12:08 by NICOLE Recinos) Tobacco abuse History of pulmonary embolism URI (upper respiratory infection) Opioid withdrawal COPD (chronic obstructive pulmonary disease) PE (pulmonary embolism) (09/27/13) Surgical History No significant past surgical history Social History Smoking Status: Current every day smoker Tobacco Type: Cigarettes Cigarettes Per Day: 8; Second Hand Exposure: No; Do You Dip or Chew Tobacco: No; Tobacco Cessation Education Requested by Patient: No Hx Alcohol Use: No Preferred Language: Maltese Communication Ability: Effective Public Relations Assistant Required: No Beliefs That Will Affect Care: None Current Living Situation: Family Current Living Situation Comment: BROTHER Other Information That Helps Us Care for You: No Feels Safe at Home: Yes Safety Concerns: Feels Safe At This Time Assistive Devices: None Review of Systems 2 Review of Systems: ROS: Gen: C/o general weakness for the past few days, subjective fever, denies weight loss Eyes: No eye redness, or pain, no recent vision changes Resp: No SOB, no cough Cardio: No palpitations/irregular beats, no chest pain GI: As per HPI : Denies pain on urination Skin: No jaundice, itching or new rashes Physical Exam 2 Constitutional: WD/WN, vitals as above Eyes: PERRL, conjunctivae normal, anicteric sclerae ENMT: external ear and nose normal, oropharynx normal Neck: trachea midline, no thyromegaly Respiratory: normal respiratory effort, lungs clear to auscultation Cardiovascular: RRR, no murmur, no edema Gastrointestinal (Abdomen): non distended, hypoactive BS, soft, mild tenderness both lower quadrants, w/o mass Skin: no rashes, warm and dry Neurologic: PERRL, EOMI, accommodation nl, no face palsy, no dysarthria Psychiatric: A+Ox3, euthymic affect Lymphatic: no cervical or axillary lymphadenopathy Results & Data Vital Signs (Past 12 Hours) Vital Signs Temp Pulse Pulse Resp BP Pulse Ox O2 Del Method 08/30/23 11:00 36.8 C 99 H 18 149/81 H 97 Room Air 08/30/23 07:44 36.5 C 97 H 20 145/89 H 96 Room Air 08/30/23 07:19 81 08/30/23 03:16 36.5 C 91 H 18 153/95 H 95 Room Air 08/30/23 02:22 81 Laboratory Results LFTs normal yesterday except T Bili 1.1 08/30/23 07:51 08/30/23 07:51 Diagnostic Findings Non contrast CTAP 08/29/23: 1. The moderate to large amount of well-formed stool seen within the colon on the prior study has essentially resolved in the interval. 2. There is mild circumferential thickening involving the majority of the transverse colon, descending colon, and proximal sigmoid colon with mild pericolonic fat stranding. This has progressed in the interval and is consistent with a nonspecific colitis. This could be due to an infectious, inflammatory, or ischemic process. 3. Left-sided nephrolithiasis. No ureteral stones. No hydronephrosis. 4. Normal appendix. 5. Hepatic steatosis with suggestion of early cirrhosis. 6. Distended gallbladder containing a few punctate gallstones. No gallbladder wall thickening. CXR 08/30/23: Emphysematous change with no active disease in the chest. Renal US 08/30/23: Left nephrolithiasis without hydronephrosis. CTAP w IV contrast on 08/28/23: 1. Severe constipation with fecal impaction. Possible mild transverse colitis. No acute appendicitis or bowel obstruction. 2. Nonobstructive stones within the left kidney, largest measuring 2.3 mm. 10 mm simple cyst within the lower pole of the left kidney with no further follow-up imaging recommended. Remainder of abdomen is unremarkable. 3. Mild fullness of the para-aortic lymph nodes as described which may be associated with nonspecific inflammatory response, follow-up recommended if indicated.
[2023-08-30] MEDS: SODIUM BICARBONATE 8.4% 75 MEQ in SODIUM CHLORIDE 0.45 % 1,000 ML IV SCH (15:44)
[2023-08-30] MEDS ORDERED: LAVAGE SOLUTION 4000ML PO ONE (16:00)
[2023-08-30] MEDS ORDERED: METHYLNALTREXONE BROMIDE 12 MG/0.6 ML VIAL SQ ONE (16:20)
[2023-08-30] MEDS ORDERED: CIPROFLOXACIN / D5W 400 MG/200 ML BAG IV SCH (19:00)
[2023-08-30] MEDS: ENOXAPARIN INJ 30 MG/0.3 ML SYR SQ SCH (20:48)
--- NOTE | 2023-08-30 21:33 | Hospitalist Progress Note ---
Date of Service August 30, 2023 Assessment & Plan (1) Abdominal pain: (2) Acute renal failure: (3) Acute hyponatremia: (4) Lactic acidosis: (5) Sepsis: (6) Constipation: (7) Colitis: Plan This is a 53 yr old M who has a hx of COPD, GERD, hx of narcotic addiction, migraine and tobacco abuse who presented to ED 2/2 abdominal pain. Abdominal pain Constipation Stercoral Colitis Sepsis Presenting with abdominal pain, was seen for the same in the ED on 08/28 prior to admission WBC elevated on the and was increased on admission, was tachycardic Lactate increased, currently wnl after fluid resuscitation CT abd pelvis on 08/28 noted severe constipation with fecal impaction (pt on methadone), was treated with an enema and mag citrate and discharged from the ED CT abd/pelvis from 08/29 noting improved constipation but also nonspecific colitis as likely infectious septic cause UA with urine Cx pending Blood Cx x2 with NGTD Continue IV Cipro and Flagyl GI consulted- appreciate recs -recommending bowel purge then daily Laxatives. Outpt Colonoscopy. EMIL Cr on admission was 4.24 on admission, was 0.[address] abd pelvis on 08/29 noting left-sided nephrolithiasis, no ureteral stones, no hydronephrosis. Renal US ordered Aggressive fluid hydration (echo grossly within normal limits, appears to be able to tolerate) Avoid nephrotoxic meds/contrast as able Nephrology consult- appreciate recs Acute hyponatremia Sodium of 122 on admission Likely secondary to dehydration Serial BMPs Nephrology consult as above Hyperglycemia Glucose level of 358 on admission Hgba1c of 8.4 Anion gap of 16 on admission Aggressive fluid hydration as above no previous dx of T2DM lantus/novolog per protocol for now Glycemic consult-appreciate recs and further management community educator, will need statin on discharge given new DM diagnosis Cirrhosis CT abd/pelvis noting Hepatic steatosis with suggestion of early cirrhosis Outpt follow up History of narcotic abuse currently receiving methadone ED pharmacist called [facility], he has not had a dose since 08/27. Will give 136mg dose tomorrow and then recommend reaching out to [facility] [place] [facility] 08/31 to determine next dose as he is on tapering dose History of tobacco Encourage cessation Diet: Currently full liquids DVT ppx: SQ Lovenox FULL CODE Admission and Anticipated Discharge Date Admission Date: August 29, 2023 Subjective Pt seen in the AM. Was sleeping, arousable but mumbling answers. Later notified by nephrology that pt had cup at bedside with bloody sputum. Review of Systems Review of Systems: All systems reviewed & are unremarkable except as noted in Subjective Physical Exam Physical Exam: General: Drowsy, noncommunicative Psych: Could not be determined Neuro: No gross deficits while laying in bed HEENT: NC/AT CV: RRR Resp: Breath sounds clear bilaterally, no increased effort of breathing. Abdomen: Soft, distended Extremities: No edema in lower extremities bilaterally. Results & Data Results & Data Vital Signs (Past 12 Hours) Vital Signs Temp Pulse Pulse Resp BP Pulse Ox O2 Del Method 08/30/23 07:44 36.5 C 97 H 20 145/89 H 96 Room Air 08/30/23 07:19 81 08/30/23 03:16 36.5 C 91 H 18 153/95 H 95 Room Air 08/30/23 02:22 81 08/29/23 23:14 36.9 C 84 18 145/76 H 92 Room Air
[2023-08-30] MEDS: ACETAMINOPHEN 325 MG TAB PO PRN (23:01)
[2023-08-31] MEDS: metroNIDAZOLE 500 MG/100 ML BAG IV SCH ×3 (01:16→18:06)
[2023-08-31] MEDS: INSULIN ASPART PER UNIT CHARGE SC SCH ×5 (04:02→20:18)
[2023-08-31] MEDS: SODIUM BICARBONATE 8.4% 75 MEQ in SODIUM CHLORIDE 0.45 % 1,000 ML IV SCH (04:30)
[2023-08-31] MEDS: ACETAMINOPHEN 325 MG TAB PO PRN ×2 (05:25→20:09)
[2023-08-31] MEDS: LANTUS PER UNIT CHARGE SQ SCH ×2 (09:01→20:19)
[2023-08-31] MEDS: METHADONE ORAL SOLN 2 MG/ML PO SCH (09:07)
[2023-08-31 09:22] LABS: Hematocrit (blood only) 39.9 % (42.0-52.0); Hemoglobin 14.6 g/dl (14.0-18.0); Mean Corpuscular Hemoglobin 30.7 pg (25.0-34.0); Mean Corpuscular Hgb Conc 36.6 g/dL (32.0-36.0); Mean Corpuscular Volume 83.8 fL (80.0-100.0); Mean Platelet Volume 11.4 fL (9.4-12.4); Platelet Count 177 K/uL (130-400); RDW Coefficient of Variation 12.8 % (11.5-14.5); RDW Standard Deviation 39.6 fL (36.4-46.3); Red Blood Count 4.76 M/uL (4.70-6.10); White Blood Count 8.43 K/ul (4.8-10.8)
[2023-08-31 09:37] LABS: Albumin Globulin Ratio 0.9 (0.9-2); BUN Creatinine Ratio 18.8 (10-20); Bilirubin,Total 0.8 mg/dl (0.2-1.0); Calcium 8.3 mg/dl (8.6-10.3); Creatinine Clr Calc Pharmacy 34.6 ml/min; Est GFR (African American) 29.3 ml/min; Est GFR (Non-African American) 25.3 ml/min; Globulin 3.3 gm/dl (2.5-4.0); Magnesium 2.2 mg/dl (1.7-2.4); Phosphorus 2.8 mg/dl (2.5-4.9); Potassium 3.2 mmol/L (3.5-5.1); Total Protein 6.3 gm/dl (6.0-8.3)
--- NOTE | 2023-08-31 10:18 | Pharmacy Report ---
Pharmacy Glycemic Short Note 2 - Date of Service August 31, 2023 - Glycemic Short BSG Results (Last 24 hours): 08/30/23 08/30/23 08/30/23 11:26 16:12 20:16 Glucose POC Glucose 204 H 150 H 199 H 08/30/23 08/31/23 08/31/23 23:38 04:02 06:53 Glucose 137 H POC Glucose 172 H 136 H 08/31/23 07:21 Glucose POC Glucose 161 H OUTPATIENT ANTIDIABETIC REGIMEN: * n/a ASSESSMENT: 08/31/23 * Kendell received 50 units of insulin yesterday (30 basal) * Fasting BSG acceptable will continue current basal regimen. * He continues on Cipro/Flagyl and was starting on a bicarbonate drip in 1/2NS. * All BSGs downtrending, diet advanced to full liquid. Continue current Novolog parameters 08/30/23 * Patient received 24 units of insulin yesterday, 10 units basal, BSGs remain in 200s, increase basal and tighten CF/CR and goal range. 08/29/23 * 53 year old admitted with ongoing abdominal pain/nausea and vomiting. PMHx significant for COPD, GERD, narcotic addiction. Patient also with significant EMIL. Pharmacy consulted for glycemic management as BSGs in 300s - A1c ordered for tomorrow * Conservative scale for basal added on at HS along with novolog. Patient NPO PLAN FOR INPATIENT GLYCEMIC CONTROL: * Basal insulin * Lantus 0-15 units SQ BID * Bolus insulin * NovoLog per scale ACHS or Q6hrs while NPO * Goal Range: Low 110 mg/dL - High 140 mg/dL * Correction Factor: 15 mg/dL/unit * Nutritional / Prandial insulin per carb ratio of 1 unit per 6 grams CHO consumed
[2023-08-31] MEDS ORDERED: POTASSIUM CHLORIDE CRTAB 20 MEQ TABCR PO STA (10:39)
--- NOTE | 2023-08-31 11:04 | Nephrology Progress Note ---
Date of Service August 31, 2023 Assessment & Plan (1) Acute renal failure: Plan: improving but severe/ Stage III nonoliguric acute kidney injury likely multifactorial ischemic ATN in the setting of IV contrast and volume depletion from excessive bowel movements. Baseline creatinine 0.7. up to 4.2 about 36 hours later and at 2.8 today. not oliguric. no indication currently for emergent dialysis but cannot rule out the need this admission IV fluids as below Daily basic metabolic panel Strict intake and output particularly urine output Continue avoidance of nephrotoxins including IV contrast unless life or limb saving and NSAIDs (2) Metabolic acidosis: Plan: On presentation he had an anion gap metabolic acidosis with elevated lactate and hyperglycemia with ketonuria; gap closed in the setting of aggressive therapy with normal saline and lactic acid has normalized. hyperglycemia being addressed. now gap recurring for unclear reasons since renal function /clinical status improving; hypokalemic in setting of numerous bm; phos has gone from high to normal -repeat UA for ketones; repeat lactic acid, bmp, vbg, serum osms 1600; cannot r/o need for ABG >> suspect lactic acidosis from colitis/bowel subtrauma/minitrauma w/ impactino, but AKA and far less likely euglycemic DKA on differential -had 40 mEq po K; will start 40 mEq daily starting noon for 2 po total doses today -added IV K balanced solution>1/2 NS w/ 75 mEq/L sodium bicarb plus 40 mEq K at 80>> now 125 mL /hr (3) Acute hyponatremia: Plan: hyponatremia resolved. Rate of change is acceptable Admission and Anticipated Discharge Date Admission Date: August 29, 2023 Subjective 5 BM ON charted - pt lost count; he is on go lytely; no more hemoptysis, no sob, no n/v, no edema Review of Systems 2 Review of Systems: All systems reviewed & are unremarkable except as noted in Subjective Physical Exam 2 Constitutional: well developed, well nourished and cooperative; no acute distress Eyes: EOM intact bilaterally ENMT: Ears: no external ear abnormality Nose: no external nose abnormality Mouth: + dry oral mucous membranes Neck: no nuchal rigidity Respiratory: normal respiratory effort Auscultation: + diminished lung sounds Cardiovascular: RRR, no murmur, no edema Gastrointestinal (Abdomen): Inspection/Auscultation: normal bowel sounds P ercussion/Palpation: + abdomen tender (minima today) and abdomen soft; no guarding and no ascites Musculoskeletal: Extremities: strength 5/5 throughout Skin: no rashes, warm and dry Psychiatric: Orientation: oriented x 3 Results & Data Vital Signs (Past 12 Hours) Vital Signs Temp Pulse Pulse Resp BP BP Pulse Ox 08/31/23 09:00 73 08/31/23 07:41 08/31/23 07:34 36.9 C 78 16 159/81 H 97 08/31/23 00:00 92 H 08/30/23 23:37 37.3 C 92 H 143/83 H 95 O2 Del Method 08/31/23 09:00 08/31/23 07:41 Room Air 08/31/23 07:34 Room Air 08/31/23 00:00 08/30/23 23:37 Room Air Laboratory Results 08/31/23 06:53 08/31/23 06:53
[2023-08-31] MEDS: SODIUM BICARBONATE 8.4% 75 MEQ, POTASSIUM CHLORIDE 40 MEQ in SODIUM CHLORIDE 0.45 % 1,0... IV SCH (13:07)
[2023-08-31] MEDS: POTASSIUM CHLORIDE CRTAB 20 MEQ TABCR PO SCH (13:07)
[2023-08-31] MEDS: CIPROFLOXACIN / D5W 400 MG/200 ML BAG IV SCH (13:25)
--- NOTE | 2023-08-31 14:40 | Hospitalist Progress Note ---
Date of Service August 31, 2023 Assessment & Plan (1) Abdominal pain: (2) Acute renal failure: (3) Acute hyponatremia: (4) Lactic acidosis: (5) Sepsis: (6) Constipation: (7) Colitis: Plan This is a 53 yr old M who has a hx of COPD, GERD, hx of narcotic addiction, migraine and tobacco abuse who presented to ED 2/2 abdominal pain. Abdominal pain Constipation Stercoral Colitis Sepsis POA secondary to colitis Presenting with abdominal pain Today elevated on admission CT abd pelvis on 08/28 noted severe constipation with fecal impaction (pt on methadone), was treated with an enema and mag citrate and discharged from the ED CT abd/pelvis from 08/29 noting improved constipation but also nonspecific colitis Urine cultureno growth Blood Cx x2 with NGTD Continue bowel regimen, IV Cipro plus Flagyl. Plan for 5 days of treatment EMIL, likely prerenal Hyponatremia Cr on admission was 4.24 on admission, was 0.[address] abdomen/pelvis on 08/29 noting left-sided nephrolithiasis, no ureteral stones, no hydronephrosis. Sodium of 122 on admission; improving gradually. On IV fluids as per nephrology. Strict input and output monitoring. Hyperglycemia Newly diagnosed type 2 diabetes mellitus Glucose level of 358 on admission Hgba1c of 8.4 percent Discussed with aortic educator. Cirrhosis CT abd/pelvis noting Hepatic steatosis with suggestion of early cirrhosis Outpt follow up History of narcotic abuse currently receiving methadone ED pharmacist called [facility], he has not had a dose since 08/27. On 136 mg once a day. Follow-up with methadone clinic. History of tobacco Encourage cessation Diet: Currently full liquids DVT ppx: SQ Lovenox FULL CODE Time spent evaluating patient, direct bedside care, chart review, placing orders, interpretation of diagnostic studies, discussion with consultants, patient, and family members, as well as other required patient management activities is 50 minutes Please note the above document was generated using voice recognition software. It may contain grammatical, syntax or spelling errors. Any formal questions or concerns about the content, text or information contained within the body of this dictation should be directly addressed to the provider for clarification Admission and Anticipated Discharge Date Admission Date: August 29, 2023 Subjective Patient seen and examined at bedside. Comfortable; not in distress. Reports abdominal pain in left lower quadrant Having multiple bowel movements. No overnight events Review of Systems Review of Systems: All systems reviewed & are unremarkable except as noted in Subjective Physical Exam Physical Exam: Constitutional: WD/WN, vitals as above, NAD, sitting up in bed, pleasant, conversing easily Respiratory: normal respiratory effort, lungs clear to auscultation, no wheeze, rales, rhonchi. Normal insp/exp effort, no accessory muscle use Cardiovascular: RRR, no murmur, no edema Vessels: no JVD or carotid bruit Chest: normal inspection of chest Abdomen: Mild tenderness in left lower quadrant Musculoskeletal: no cyanosis or clubbing, extremities motor strength 5/5 Skin: no rashes, warm and dry normal turgor Neurologic: PERRL, EOMI, accommodation nl, no face palsy, no dysarthria CN's II- XI intact bilaterally and moves all extremities Psychiatric: A+Ox3, euthymic affect Results & Data Results & Data Vital Signs (Past 12 Hours) Vital Signs Temp Pulse Pulse Resp BP Pulse Ox O2 Del Method 08/31/23 11:26 36.7 C 86 18 117/70 92 Room Air 08/31/23 09:00 73 08/31/23 07:41 Room Air 08/31/23 07:34 36.9 C 78 16 159/81 H 97 Room Air
[2023-08-31] MEDS: ALUMINUM/MAGNESIUM SUSP 30 ML UDC PO PRN (15:41)
[2023-08-31 16:16] LABS: Base Excess VBG -0.4 mEq/L; HCO3 VBG 23 mmol/L; Oxygen Saturation VBG 97.8 %; PCO2 VBG 33 mmHg (38-50); PO2 VBG 84 mmHg; pH VBG 7.45 (7.36-7.41)
[2023-08-31 16:50] LABS: BUN Creatinine Ratio 18.4 (10-20); Calcium 8.2 mg/dl (8.6-10.3); Creatinine Clr Calc Pharmacy 42.1 ml/min; Est GFR (African American) 37.1 ml/min; Potassium 3.8 mmol/L (3.5-5.1)
[2023-08-31 18:28] LABS: Appearance Urine Clear (Clear); Bilirubin Urine Negative (Negative); Blood Urine Negative (Negative); Color Urine Yellow; Glucose Urine UA Trace (Negative); Ketones Urine Negative (Negative); Leukocyte Esterase Urine Negative (Negative); Nitrite Urine Negative (Negative); Protein Urine Negative (Negative); Specific Gravity Urine 1.009 (1.000-1.030); Urobilinogen Urine Negative (Negative); pH Urine 6.5 (4.5-7.5)
[2023-08-31] MEDS: ENOXAPARIN INJ 40 MG/0.4 ML SYR SQ SCH (20:10)
--- NOTE | 2023-08-31 21:45 | Electrocardiogram Report ---
Test Reason : Blood Pressure : / mmHG Vent. Rate : 094 BPM Atrial Rate : 094 BPM P-R Int : 168 ms QRS Dur : 086 ms QT Int : 352 ms P-R-T Axes : 069 -16 050 degrees QTc Int : 440 ms Normal sinus rhythm Possible Inferior infarct , age undetermined Anterior infarct , age undetermined Abnormal ECG When compared with ECG of 13-NOV-2022 09:59, Anterior infarct is now Present Borderline criteria for Inferior infarct are now Present Confirmed by Chance Watt ([id number] on 08/31/2023 9:44:52 PM Referred By: Confirmed By:Chance Watt
[2023-09-01] MEDS: CIPROFLOXACIN / D5W 400 MG/200 ML BAG IV SCH ×3 (02:04→23:49)
[2023-09-01] MEDS: INSULIN ASPART PER UNIT CHARGE SC SCH ×6 (02:18→20:14)
[2023-09-01] MEDS: metroNIDAZOLE 500 MG/100 ML BAG IV SCH ×3 (03:16→17:34)
[2023-09-01] MEDS: SODIUM BICARBONATE 8.4% 75 MEQ, POTASSIUM CHLORIDE 40 MEQ in SODIUM CHLORIDE 0.45 % 1,0... IV SCH ×3 (04:34→14:35)
[2023-09-01 08:04] LABS: Basophils # (auto) 0.07 K/uL (0.00-0.20); Basophils % (auto) 0.7 %; Eosinophils # (auto) 0.21 K/uL (0.00-0.50); Eosinophils % (auto) 2.2 %; Hematocrit (blood only) 37.9 % (42.0-52.0); Hemoglobin 13.6 g/dl (14.0-18.0); Immature Granulocytes # (auto) 0.07 K/uL (0.01-0.20); Immature Granulocytes % (auto) 0.7 %; Lymphocytes # (auto) 3.15 K/uL (1.20-3.40); Lymphocytes % (auto) 32.8 %; Mean Corpuscular Hemoglobin 30.3 pg (25.0-34.0); Mean Corpuscular Hgb Conc 35.9 g/dL (32.0-36.0); Mean Corpuscular Volume 84.4 fL (80.0-100.0); Mean Platelet Volume 11.1 fL (9.4-12.4); Monocytes # (auto) 1.11 K/uL (0.11-0.59); Monocytes % (auto) 11.6 %; Platelet Count 173 K/uL (130-400); RDW Coefficient of Variation 12.8 % (11.5-14.5); RDW Standard Deviation 39.5 fL (36.4-46.3); Red Blood Count 4.49 M/uL (4.70-6.10); White Blood Count 9.61 K/ul (4.8-10.8)
[2023-09-01 08:18] LABS: BUN Creatinine Ratio 16.7 (10-20); Calcium 8.4 mg/dl (8.6-10.3); Creatinine Clr Calc Pharmacy 64.2 ml/min; Est GFR (African American) 56.1 ml/min; Est GFR (Non-African American) 48.4 ml/min; Potassium 3.5 mmol/L (3.5-5.1)
[2023-09-01] MEDS: METHADONE ORAL SOLN 2 MG/ML PO SCH (08:44)
[2023-09-01] MEDS: LANTUS PER UNIT CHARGE SQ SCH ×2 (08:44→20:18)
[2023-09-01] MEDS: POTASSIUM CHLORIDE CRTAB 20 MEQ TABCR PO SCH (08:45)
[2023-09-01] MEDS: ACETAMINOPHEN 1,000 MG/100 ML VIAL IV PRN ×2 (10:33→20:07)
--- NOTE | 2023-09-01 12:10 | Hospitalist Progress Note ---
Date of Service September 01, 2023 Assessment & Plan (1) Abdominal pain: (2) Acute renal failure: (3) Acute hyponatremia: (4) Lactic acidosis: (5) Sepsis: (6) Constipation: (7) Colitis: Plan This is a 53 yr old M who has a hx of COPD, GERD, hx of narcotic addiction, migraine and tobacco abuse who presented to ED 2/2 abdominal pain. Abdominal pain Constipation Stercoral Colitis Sepsis POA secondary to colitis Presenting with abdominal pain CT abd pelvis on 08/28 noted severe constipation with fecal impaction (pt on methadone), was treated with an enema and mag citrate and discharged from the ED CT abd/pelvis from 08/29 noting improved constipation but also nonspecific colitis Urine cultureno growth Blood Cx x2 with NGTD Continue bowel regimen, IV Cipro plus Flagyl. Plan for 5 days of treatment EMIL, likely prerenal Hyponatremia Cr on admission was 4.24 on admission, was 0.[address] abdomen/pelvis on 08/29 noting left-sided nephrolithiasis, no ureteral stones, no hydronephrosis. Sodium of 122 on admission; improving gradually. On IV fluids as per nephrology. Strict input and output monitoring. Hyperglycemia Newly diagnosed type 2 diabetes mellitus Glucose level of 358 on admission Hgba1c of 8.4 percent Discussed with clinical nurse educator. Cirrhosis CT abd/pelvis noting Hepatic steatosis with suggestion of early cirrhosis Outpt follow up History of narcotic abuse currently receiving methadone ED pharmacist called [facility], he has not had a dose since 08/27. On 136 mg once a day. Follow-up with methadone clinic. History of tobacco Encourage cessation Diet: Currently full liquids DVT ppx: SQ Lovenox FULL CODE Time spent evaluating patient, direct bedside care, chart review, placing orders, interpretation of diagnostic studies, discussion with consultants, patient, and family members, as well as other required patient management activities is 50 minutes Please note the above document was generated using voice recognition software. It may contain grammatical, syntax or spelling errors. Any formal questions or concerns about the content, text or information contained within the body of this dictation should be directly addressed to the provider for clarification Admission and Anticipated Discharge Date Admission Date: August 29, 2023 Subjective Patient seen and examined at bedside. Comfortable; not in distress. Reports abdominal pain in left lower quadrant No overnight events. Review of Systems Review of Systems: All systems reviewed & are unremarkable except as noted in Subjective Physical Exam Physical Exam: Constitutional: WD/WN, vitals as above, NAD, sitting up in bed, pleasant, conversing easily Respiratory: normal respiratory effort, lungs clear to auscultation, no wheeze, rales, rhonchi. Normal insp/exp effort, no accessory muscle use Cardiovascular: RRR, no murmur, no edema Vessels: no JVD or carotid bruit Chest: normal inspection of chest Abdomen: Mild tenderness in left lower quadrant Musculoskeletal: no cyanosis or clubbing, extremities motor strength 5/5 Skin: no rashes, warm and dry normal turgor Neurologic: PERRL, EOMI, accommodation nl, no face palsy, no dysarthria CN's II- XI intact bilaterally and moves all extremities Psychiatric: A+Ox3, euthymic affect Results & Data Results & Data Vital Signs (Past 12 Hours) Vital Signs Temp Pulse Pulse Resp BP Pulse Ox O2 Del Method 09/01/23 09:28 70 09/01/23 07:35 36.8 C 78 18 128/77 94 Room Air 09/01/23 07:32 Room Air 09/01/23 02:20 36.9 C 77 18 144/77 H 94 Room Air
--- NOTE | 2023-09-01 16:41 | Nephrology Progress Note ---
Date of Service September 01, 2023 Assessment & Plan (1) Acute renal failure: Plan: further improving but severe/ Stage III nonoliguric acute kidney injury likely multifactorial ischemic ATN in the setting of IV contrast and volume depletion from excessive bowel movements. Baseline creatinine 0.7. up to 4.2 about 36 hours later and at 1.6 today. not oliguric. IV fluids as below Daily basic metabolic panel Strict intake and output particularly urine output Continue avoidance of nephrotoxins including IV contrast unless life or limb saving and NSAIDs (2) Metabolic acidosis: Plan: On presentation he had an anion gap metabolic acidosis with elevated lactate and hyperglycemia with ketonuria; gap closed in the setting of aggressive therapy with normal saline and lactic acid has normalized. hyperglycemia being addressed. gap recurred; then resolved. repeat UA w/o ketones, lactate remains wnl > cause of recurrence not clear hypokalemic in setting of numerous bm; phos has gone from high to normal -cont daily standing K -cont balanced solution > 1/2 NS w/ 75 mEq/L sodium bicarb plus 40 mEq K at now 125 mL /hr Admission and Anticipated Discharge Date Admission Date: August 29, 2023 Subjective seen on rounds at about 0815; c/o LLQ ongong abd pain which lessens slightly w/ voiding but then recurs. no other voiding sx. no n/v/d. rash on forearms now Review of Systems 2 Review of Systems: All systems reviewed & are unremarkable except as noted in Subjective Physical Exam 2 Constitutional: well developed, well nourished and cooperative; no acute distress Eyes: EOM intact bilaterally ENMT: Ears: no external ear abnormality Nose: no external nose abnormality Mouth: + dry oral mucous membranes Neck: no nuchal rigidity Respiratory: normal respiratory effort Auscultation: + diminished lung sounds Cardiovascular: RRR, no murmur, no edema Gastrointestinal (Abdomen): Inspection/Auscultation: normal bowel sounds P ercussion/Palpation: + abdomen tender (minimal LLQ today), + guarding (no rebound) and abdomen soft; no ascites Musculoskeletal: Extremities: strength 5/5 throughout Skin: macular rash BL forearms, fainter on back Psychiatric: Orientation: oriented x 3 Results & Data Vital Signs (Past 12 Hours) Vital Signs Temp Pulse Pulse Resp BP Pulse Ox O2 Del Method 09/01/23 15:30 68 09/01/23 11:04 36.5 C 71 18 119/68 94 Room Air 09/01/23 09:28 70 09/01/23 07:35 36.8 C 78 18 128/77 94 Room Air 09/01/23 07:32 Room Air Laboratory Results 09/01/23 07:28 09/01/23 07:28
[2023-09-01] MEDS: ALUMINUM/MAGNESIUM SUSP 30 ML UDC PO PRN ×2 (17:38→22:19)
[2023-09-01] MEDS ORDERED: KETOROLAC TROMETHAMINE 15 MG/ML VIAL IV ONE (18:01)
[2023-09-01] MEDS: ENOXAPARIN INJ 40 MG/0.4 ML SYR SQ SCH (20:12)
[2023-09-02] MEDS: metroNIDAZOLE 500 MG/100 ML BAG IV SCH ×3 (02:01→17:15)
[2023-09-02] MEDS: ALUMINUM/MAGNESIUM SUSP 30 ML UDC PO PRN (02:06)
[2023-09-02] MEDS: SODIUM BICARBONATE 8.4% 75 MEQ, POTASSIUM CHLORIDE 40 MEQ in SODIUM CHLORIDE 0.45 % 1,0... IV SCH ×2 (03:15→12:11)
[2023-09-02] MEDS: ACETAMINOPHEN 1,000 MG/100 ML VIAL IV PRN (04:45)
[2023-09-02 07:42] LABS: Hematocrit (blood only) 39.4 % (42.0-52.0); Hemoglobin 13.6 g/dl (14.0-18.0); Mean Corpuscular Hemoglobin 30.1 pg (25.0-34.0); Mean Corpuscular Hgb Conc 34.5 g/dL (32.0-36.0); Mean Corpuscular Volume 87.2 fL (80.0-100.0); Mean Platelet Volume 11.3 fL (9.4-12.4); Platelet Count 168 K/uL (130-400); RDW Coefficient of Variation 12.9 % (11.5-14.5); RDW Standard Deviation 41.5 fL (36.4-46.3); Red Blood Count 4.52 M/uL (4.70-6.10); White Blood Count 11.42 K/ul (4.8-10.8)
[2023-09-02 07:57] LABS: BUN Creatinine Ratio 15.6 (10-20); Calcium 8.5 mg/dl (8.6-10.3); Creatinine Clr Calc Pharmacy 85.4 ml/min; Est GFR (African American) 79.1 ml/min; Est GFR (Non-African American) 68.2 ml/min
[2023-09-02] MEDS: POTASSIUM CHLORIDE CRTAB 20 MEQ TABCR PO SCH (08:03)
[2023-09-02] MEDS: METHADONE ORAL SOLN 2 MG/ML PO SCH (08:03)
[2023-09-02] MEDS: LANTUS PER UNIT CHARGE SQ SCH ×2 (08:04→20:45)
[2023-09-02] MEDS: INSULIN ASPART PER UNIT CHARGE SC SCH ×4 (08:04→20:46)
[2023-09-02 08:05] LABS: Basophils # (auto) 0.06 K/uL (0.00-0.20); Basophils % (auto) 0.5 %; Eosinophils # (auto) 0.23 K/uL (0.00-0.50); Immature Granulocytes # (auto) 0.13 K/uL (0.01-0.20); Immature Granulocytes % (auto) 1.1 %; Lymphocytes # (auto) 4.14 K/uL (1.20-3.40); Lymphocytes % (auto) 36.3 %; Monocytes % (auto) 12.3 %; Neutrophils # (auto) 5.46 K/uL (1.40-6.50); Neutrophils % (auto) 47.8 %
--- NOTE | 2023-09-02 09:56 | Nephrology Progress Note ---
Date of Service September 02, 2023 Assessment & Plan (1) Acute renal failure: Plan: further improving but severe/ Stage III nonoliguric acute kidney injury likely multifactorial ischemic ATN in the setting of IV contrast and volume depletion from excessive bowel movements. Baseline creatinine 0.7. up to 4.2 about 36 hours later and at 1.2 today. not oliguric. stopped IV fluids Daily basic metabolic panel Strict intake and output particularly urine output Continue avoidance of nephrotoxins including IV contrast unless life or limb saving and NSAIDs will sign off; pls call if ? Care coordinated w/ Dr Aguirre NEPHRO D/C RECS -hospital d/c appt w/ any [facility] physician in 2-4 wks w/ bmp, uacm, ACR to be ordered by neph nurse and obtained no more than 3 days before appt -bmp at PCP f/u visit -continued nsaid avoidance after d/c -no K supplements needed at d/c (2) Metabolic acidosis: Plan: On presentation he had an anion gap metabolic acidosis with elevated lactate and hyperglycemia with ketonuria; gap closed in the setting of aggressive therapy with normal saline and lactic acid has normalized. hyperglycemia being addressed. gap recurred; then resolved. repeat UA w/o ketones, lactate remains wnl > cause of recurrence not clear hypokalemic in setting of numerous bm; phos has gone from high to normal -stopped both K supplements and IVF Admission and Anticipated Discharge Date Admission Date: August 29, 2023 Subjective endorses some N still w/ po and crampy abd pain which was worse overnight; ? milk allergy or intolerance. no new/worrisome voidin issues, no sob, no edema. Review of Systems 2 Review of Systems: All systems reviewed & are unremarkable except as noted in Subjective Physical Exam 2 Constitutional: well developed, well nourished and cooperative; no acute distress Eyes: EOM intact bilaterally ENMT: Ears: no external ear abnormality Nose: no external nose abnormality Mouth: + dry oral mucous membranes Neck: no nuchal rigidity Respiratory: normal respiratory effort Auscultation: + diminished lung sounds Cardiovascular: RRR, no murmur, no edema Gastrointestinal (Abdomen): Inspection/Auscultation: normal bowel sounds P ercussion/Palpation: + abdomen tender (minimal), + guarding (no rebound) and abdomen soft; no ascites Musculoskeletal: Extremities: strength 5/5 throughout Skin: no rashes, warm and dry Psychiatric: Orientation: oriented x 3 Results & Data Vital Signs (Past 12 Hours) Vital Signs Temp Pulse Pulse Resp BP BP Pulse Ox 09/02/23 08:31 09/02/23 07:33 36.6 C 62 18 143/79 H 94 09/02/23 07:31 63 09/02/23 02:18 36.6 C 67 18 126/73 95 09/01/23 23:31 69 09/01/23 22:07 36.6 C 66 18 138/71 95 O2 Del Method 09/02/23 08:31 Room Air 09/02/23 07:33 Room Air 09/02/23 07:31 09/02/23 02:18 Room Air 09/01/23 23:31 09/01/23 22:07 Room Air Laboratory Results 09/02/23 06:53 09/02/23 06:53
[2023-09-02] MEDS ORDERED: IBUPROFEN 600 MG TAB PO PRN (10:01)
--- NOTE | 2023-09-02 11:53 | Hospitalist Progress Note ---
Date of Service September 02, 2023 Assessment & Plan (1) Abdominal pain: (2) Acute renal failure: (3) Acute hyponatremia: (4) Lactic acidosis: (5) Sepsis: (6) Constipation: (7) Colitis: Plan This is a 53 yr old M who has a hx of COPD, GERD, hx of narcotic addiction, migraine and tobacco abuse who presented to ED 2/2 abdominal pain. Abdominal pain Constipation Stercoral Colitis Sepsis POA secondary to colitis Presenting with abdominal pain CT abd pelvis on 08/28 noted severe constipation with fecal impaction (pt on methadone), was treated with an enema and mag citrate and discharged from the ED CT abd/pelvis from 08/29 noting improved constipation but also nonspecific colitis Urine cultureno growth Blood Cx x2 with NGTD Continue bowel regimen, IV Cipro plus Flagyl. Plan for 5 days of treatment Also started on Tylenol scheduled. EMIL, likely prerenal Hyponatremia Cr on admission was 4.24 on admission, was 0.[address] abdomen/pelvis on 08/29 noting left-sided nephrolithiasis, no ureteral stones, no hydronephrosis. Sodium of 122 on admission; improving gradually. Discontinue IV fluids. Encourage oral hydration. Hyperglycemia Newly diagnosed type 2 diabetes mellitus Glucose level of 358 on admission Hgba1c of 8.4 percent Discussed with chemical educator. Cirrhosis CT abd/pelvis noting Hepatic steatosis with suggestion of early cirrhosis Outpt follow up History of narcotic abuse currently receiving methadone ED pharmacist called [facility], he has not had a dose since 08/27. On 136 mg once a day. Follow-up with methadone clinic. History of tobacco Encourage cessation Diet: Currently full liquids DVT ppx: SQ Lovenox FULL CODE Please note the above document was generated using voice recognition software. It may contain grammatical, syntax or spelling errors. Any formal questions or concerns about the content, text or information contained within the body of this dictation should be directly addressed to the provider for clarification Admission and Anticipated Discharge Date Admission Date: August 29, 2023 Subjective Patient reports cramping pain in left lower quadrant. He reports having loose bowel movements. No other significant events overnight. Review of Systems Review of Systems: All systems reviewed & are unremarkable except as noted in Subjective Physical Exam Physical Exam: Constitutional: WD/WN, vitals as above, NAD, sitting up in bed, pleasant, conversing easily Respiratory: normal respiratory effort, lungs clear to auscultation, no wheeze, rales, rhonchi. Normal insp/exp effort, no accessory muscle use Cardiovascular: RRR, no murmur, no edema Vessels: no JVD or carotid bruit Chest: normal inspection of chest Abdomen: Mild tenderness in left lower quadrant Musculoskeletal: no cyanosis or clubbing, extremities motor strength 5/5 Skin: no rashes, warm and dry normal turgor Neurologic: PERRL, EOMI, accommodation nl, no face palsy, no dysarthria CN's II-XI intact bilaterally and moves all extremities Psychiatric: A+Ox3, euthymic affect Results & Data Results & Data Vital Signs (Past 12 Hours) Vital Signs Temp Pulse Pulse Resp BP Pulse Ox O2 Del Method 09/02/23 11:21 36.7 C 64 18 122/75 95 Room Air 09/02/23 08:31 Room Air 09/02/23 07:33 36.6 C 62 18 143/79 H 94 Room Air 09/02/23 07:31 63 09/02/23 02:18 36.6 C 67 18 126/73 95 Room Air
[2023-09-02] MEDS: ACETAMINOPHEN 325 MG TAB PO SCH ×3 (11:59→23:26)
[2023-09-02] MEDS: PANTOprazole 40 MG TAB PO SCH (11:59)
[2023-09-02] MEDS: CIPROFLOXACIN / D5W 400 MG/200 ML BAG IV SCH ×2 (12:00→23:27)
[2023-09-02] MEDS: ONDANSETRON INJ 2 MG/ML 2 ML VIAL IV PRN (12:05)
[2023-09-02] MEDS: ALBUTEROL HFA 8 GM INHALER INH SCH (16:49)
[2023-09-02] MEDS: ENOXAPARIN INJ 40 MG/0.4 ML SYR SQ SCH (20:25)
[2023-09-03] MEDS: metroNIDAZOLE 500 MG/100 ML BAG IV SCH ×2 (01:25→08:52)
[2023-09-03] MEDS: ACETAMINOPHEN 325 MG TAB PO SCH ×2 (05:29→10:04)
[2023-09-03] MEDS: ALBUTEROL HFA 8 GM INHALER INH SCH (07:10)
[2023-09-03 07:43] LABS: Hematocrit (blood only) 38.9 % (42.0-52.0); Hemoglobin 13.8 g/dl (14.0-18.0); Mean Corpuscular Hemoglobin 30.6 pg (25.0-34.0); Mean Corpuscular Hgb Conc 35.5 g/dL (32.0-36.0); Mean Corpuscular Volume 86.3 fL (80.0-100.0); Mean Platelet Volume 11.2 fL (9.4-12.4); Platelet Count 205 K/uL (130-400); RDW Coefficient of Variation 12.8 % (11.5-14.5); RDW Standard Deviation 40.1 fL (36.4-46.3); Red Blood Count 4.51 M/uL (4.70-6.10); White Blood Count 12.57 K/ul (4.8-10.8)
[2023-09-03 08:13] LABS: BUN Creatinine Ratio 11.5 (10-20); Calcium 8.8 mg/dl (8.6-10.3); Creatinine Clr Calc Pharmacy 78.6 ml/min; Est GFR (African American) 79.1 ml/min; Est GFR (Non-African American) 68.2 ml/min; Potassium 3.5 mmol/L (3.5-5.1)
[2023-09-03 08:36] LABS: Basophils % (auto) 0.8 %; Eosinophils # (auto) 0.23 K/uL (0.00-0.50); Eosinophils % (auto) 1.8 %; Immature Granulocytes # (auto) 0.15 K/uL (0.01-0.20); Immature Granulocytes % (auto) 1.2 %; Lymphocytes # (auto) 4.37 K/uL (1.20-3.40); Lymphocytes % (auto) 34.8 %; Monocytes # (auto) 1.53 K/uL (0.11-0.59); Monocytes % (auto) 12.2 %; Neutrophils # (auto) 6.19 K/uL (1.40-6.50); Neutrophils % (auto) 49.2 %
[2023-09-03] MEDS: INSULIN ASPART PER UNIT CHARGE SC SCH ×2 (08:50→12:29)
[2023-09-03] MEDS: METHADONE ORAL SOLN 2 MG/ML PO SCH (08:52)
[2023-09-03] MEDS: PANTOprazole 40 MG TAB PO SCH (08:52)
[2023-09-03] MEDS: ONDANSETRON INJ 2 MG/ML 2 ML VIAL IV PRN (08:56)
[2023-09-03] MEDS ORDERED: LANTUS PER UNIT CHARGE SQ SCH (09:00)
--- NOTE | 2023-09-03 12:10 | Pharmacy Report ---
Pharmacy Glycemic Sign Off Nt - Date of Service September 03, 2023 - Assessment & Plan ASSESSMENT: * Pharmacy was consulted by Dr Lopez on 08/29 for glycemic control and to write orders per [facility] inpatient glycemic control protocol. * Major changes made by pharmacy to antidiabetic regimen include: * added novolog/basal * Patient has been receiving/requiring ~45 units of insulin per day for adequate glycemic control * BSGs ranging 90-160 * Regimen has only required minor adjustments over the past 48hrs to achieve this level of control * Please see recommendations for outpatient antidiabetic regimen below. PLAN FOR INPATIENT GLYCEMIC CONTROL: No changes needed to current regimen. * Continue basal insulin with Lantus 10 units bid * Continue NovoLog per scale ACHS/Q6hrs while NPO * Goal range = 110 - 140 mg/dl * CF = 20 mg/dl/unit * CR = 1 unit for ever 8 g CHO consumed * Pharmacy is signing off of glycemic consult and will no longer be making adjustments to inpatient regimen. Please feel free to re-consult if needed. Thank you.
--- NOTE | 2023-09-03 14:44 | Discharge Summary ---
Date of Service September 03, 2023 Admission HPI Per Admitting Provider This is a 53 yr old M who has a FULL CDOE of COPD, GERD, hx of narcotic addiction, migraine and tobacco abuse who presented to ED 2/2 abdominal pain. 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 He has a CT a/p which showed significant constipation. He received enema and mag citrate which resulted in a bowel movement. He was discharged home. Since this time he has had a significant amount of bowel movements ~ 40. He also continues to have diffuse persistent and worsening abd pain. He therefore presented back to the hospital. He denies any f/c/s, dizziness, chest pain, URI sx, vomiting, hematemesis, melena, hematochezia. He does have a headache. He has not had food for last 1.5 days. He has been keeping down water. He denies dysuria, increased freq/urg with urination and he has been urinating less. He smokes 1/2ppd but hasn't smoked in 1.5 days. He is a prior opiate abuser and currently on a taper of methadone. He denies alcohol use. Admission Exam Per Admitting Provider General: Ill looking, in no distress Eyes: PERRL, conjunctivae normal, not pale, anicteric sclerae, EOM intact bilaterally ENMT: Dry oral mucosa Respiratory: Normal respiratory effort, no respiratory distress, lungs clear to auscultation, no crackles and no wheezes Cardiovascular: Tachycardic, S1 S2 Gastrointestinal (Abdomen): Abdomen is not distended, soft,+ generalized tenderness, +bowel sounds Musculoskeletal: No pedal edema Neurologic: Alert and oriented x 3, No focal weakness, sensation grossly intact Psychiatric: Alert and oriented x 3, euthymic affect Principal Diagnosis Abdominal pain Constipation Stercoral Colitis Sepsis POA secondary to colitis Discharge Exam Constitutional: WD/WN, vitals as above, NAD, sitting up in bed, pleasant, conversing easily Respiratory: normal respiratory effort, lungs clear to auscultation, no wheeze, rales, rhonchi. Normal insp/exp effort, no accessory muscle use Cardiovascular: RRR, no murmur, no edema Vessels: no JVD or carotid bruit Chest: normal inspection of chest Abdomen: Nontender. Musculoskeletal: no cyanosis or clubbing, extremities motor strength 5/5 Skin: no rashes, warm and dry normal turgor Neurologic: PERRL, EOMI, accommodation nl, no face palsy, no dysarthria CN's II- XI intact bilaterally and moves all extremities Psychiatric: A+Ox3, euthymic affect Discharge Data Allergies Allergy/AdvReac Type Severity Reaction Status Date / Time No Known Allergies Allergy Verified 08/28/23 01:45 Consultations 08/29/23 14:07 ED Decision to Admit Stat 08/29/23 14:35 Consult Gastroenterology Routine 08/29/23 18:43 Consult Nephrology Routine Ordered Studies 08/29/23 11:57 CT abd pelvis wo con Stat 08/29/23 12:16 CT chest diagnostic wo con Stat 08/30/23 07:10 US renal/blad retro comp Urgent Diabetes Follow up Diabetes Follow-up Needed for Newly Diagnosed Diabetes Hospital Course (1) Abdominal pain: (2) Acute renal failure: (3) Acute hyponatremia: (4) Lactic acidosis: (5) Sepsis: (6) Constipation: (7) Colitis: Plan This is a 53 yr old M who has a hx of COPD, GERD, hx of narcotic addiction, migraine and tobacco abuse who presented to ED 2/2 abdominal pain. Abdominal pain Constipation Stercoral Colitis Sepsis POA secondary to colitis Presenting with abdominal pain CT abd pelvis on 08/28 noted severe constipation with fecal impaction (pt on methadone), was treated with an enema and mag citrate and discharged from the ED CT abd/pelvis from 08/29 noting improved constipation but also nonspecific colitis Urine cultureno growth Blood Cx x2 with NGTD During the hospitalization, patient was treated with laxatives with resolution of constipation. He was also treated with IV antibiotics. At discharge, patient was prescribed laxatives along with antibiotics to complete the treatment Acute kidney injury, likely prerenal Hyponatremia Cr on admission was 4.24 on admission, was 0.[address] abdomen/pelvis on 08/29 noting left-sided nephrolithiasis, no ureteral stones, no hydronephrosis. At discharge, EMIL had resolved. Sodium has improved Hyperglycemia Newly diagnosed type 2 diabetes mellitus Glucose level of 358 on admission Hgba1c of 8.4 percent Discussed with rn diabetes educator. Given glucose meter. Prescribed metformin af ter discussion with the patient. Please note the above document was generated using voice recognition software. It may contain grammatical, syntax or spelling errors. Any formal questions or concerns about the content, text or information contained within the body of this dictation should be directly addressed to the provider for clarification Total Time Total Time Spent Total Time Spent (In Minutes): 35 Total Time Includes: Examination of the Patient, Discharge Planning, Medication Reconciliation, Communication With Other Providers and Other Discharge Plan Discharge Items Patient Disposition: Home - Self-Care Reason For Visit: emil Discharge Diagnosis: Constipation Sterocolic colitis Activity: Resume your previous activity Non-emergency contact: Primary Care Provider Call non-emergency contact if: you have any medication questions and your symptoms worsen Follow-up/Referrals: PCP,NO [Primary Care Provider] - Diet: Carb Consistent or DM2 Addtl Attending Provider Instructions: You were admitted to the hospital due to constipation and colitis. Please start laxative as needed to keep your bowel movements regular. You can take MiraLAX or milk of magnesia once or twice every day to keep your bowel movements regular. You are prescribed 3 more days of antibiotics to complete the antibiotic course for the colitis. For the pain, you can take [id number] Tylenol up to 2 g/day. You were found to have type 2 diabetes mellitus. Please check your blood glucose daily(at least 3 times a week )in the morning and keep a record. Do not eat milk/juices, eat regular/balanced meals throughout the day with low carbohydrate. You can make appointment with diabetes clinic at [phone] for follow-up. You are prescribed metformin 500 mg to be taken twice daily after meals for the diabetes. An appointment with your primary care doctor will also be set up. Pending Studies at Discharge: No Stand-Alone Forms: My [facility] [employer] Tickets, Smoking Cessation Medications and DC Order Prescriptions: New (DME) OneTouch Verio test strips Strip See Rx Instructions .Route Qty: 100 0RF Rx Instructions: daily (DME) lancets [OneTouch Delica Plus Lancet] 33 gauge misc See Rx Instructions .Route Qty: 100 0RF Rx Instructions: daily polyethylene glycol 3350 [Miralax] 17 gram powder in packet 17 g PO DAILY PRN (Reason: constipation) 30 Days Qty: 30 0RF magnesium hydroxide [Milk of Magnesia] 400 mg/5 mL suspension 15 ml PO DAILY PRN (Reason: stomach upset) Qty: 3780 0RF metformin 500 mg tablet extended release 24 hr 500 mg PO BID Qty: 60 0RF ciprofloxacin HCl 500 mg tablet 500 mg PO BID 3 Days Qty: 6 0RF metronidazole 500 mg tablet 500 mg PO Q8H 3 Days Qty: 9 0RF Continued methadone 10 mg/5 mL Solution 136 mg PO DAILY Rx Instructions: [facility] Orders: Discharge Order (Routine); Ordered 09/03/23 Ordered By: Shaan Aguirre Admission Data Admit Date/Time: 08/29/23 14:13 Attending Provider: Shaan Aguirre Admit Provider: Shwetha Lopez I. Primary Care Provider: PCP,NO Other Providers: Shwetha Lopez I.; Linda Dias Other Interventions: Discharge Summary Assessment (RN) Last Done: 09/03/23 12:37
== END 2023-09-03 13:25 | disposition home or self-care (01) | DRG 872 ==
LOC: ED 10:18 → SUATTDRO 14:13 → 2S 14:13

== ENCOUNTER 2025-02-21 11:48 | Inpatient (IN) ==
[2025-02-21 12:34] LABS: Hematocrit (blood only) 46.6 % (42.0-52.0); Hemoglobin 16.6 g/dl (14.0-18.0); Immature Granulocytes # (auto) 0.04 K/uL (0.01-0.20); Immature Granulocytes % (auto) 0.4 %; Mean Corpuscular Hemoglobin 30.9 pg (25.0-34.0); Mean Corpuscular Volume 86.8 fL (80.0-100.0); Platelet Count 187 K/uL (130-400); RDW Standard Deviation 40.3 fL (36.4-46.3); Red Blood Count 5.37 M/uL (4.70-6.10); White Blood Count 9.55 K/ul (4.8-10.8)
--- NOTE | 2025-02-21 12:39 | Emergency Department Note ---
Impression & Plan Acute hypoxic respiratory failure, Bronchitis, COPD exacerbation ED Provider Note NAME: DRAKE ESPINOZA AGE: 54 SEX: M : 1970 ARRIVES VIA: Walk-In INFORMANT: Patient ED PROVIDER(S): Giuliano Lux DO CHIEF COMPLAINT: Shortness of breath HPI: Patient is a 54-year-old male with a past medical history of acute renal failure, EMIL, sepsis, pulmonary embolism, dehydration, opioid withdrawal and COPD who presents to the ER for cough and congestion associated with shortness of breath which has been getting worse over the past week. He notes he is bringing up thick white phlegm. He does admit to a history of previous PEs. Denies any chest pain. Shortness of breath is worse with movement. He notes he can barely get around now. Denies any belly pain, nausea vomiting or diarrhea. No dysuria, urgency or frequency. No other exacerbating or remitting factors. ADDITIONAL HISTORY OBTAINED: Per HPI Chronic Medical/Social Conditions Affecting Care: Per HPI PAST MEDICAL HISTORY:See Below PAST SURGICAL HISTORY:See Below FAMILY HISTORY:See Below SOCIAL HISTORY:See Below HOME MEDICATIONS:See Below ALLERGIES:See Below VITALS:See Below PHYSICAL EXAMINATION: GENERAL: Sitting up in bed, alert, well appearing, well nourished, no distress, non-toxic EYE EXAM: normal conjunctiva. PERRL and EOM's grossly intact. OROPHARYNX: mucous membranes are moist NECK: supple, no nuchal rigidity, no adenopathy, non-tender LUNGS: Wheezing bilaterally. Normal chest wall mechanics HEART: no murmurs, S1 normal and S2 normal ABDOMEN: abdomen soft, non-tender, normo-active bowel sounds, no masses, no rebound or guarding. UPPER EXTREMITIES: upper extremities are grossly normal. Radial pulse equal bilaterally LOWER EXTREMITIES: No pitting edema. Calves are equal bilateral NEURO EXAM: Normal sensorium, cranial nerves II-XII grossly intact, normal speech, no gross weakness of arms, no gross weakness of legs. MEDICAL DECISION MAKING: Patient is a 54-year-old male who presents ER for above-stated complaint. IV was established and blood work was obtained. Labs show no significant leukocytosis or anemia. VBG with a pH is 7.37 and a CO2 of 41. BMP with a HyperRHO natremia at 131. Glucose was elevated at 404. Patient was given 8 units IV insulin in combination with fluids. Patient was also given an hour- long DuoNeb in combination with Solu-Medrol for COPD exacerbation and treated for the pneumonitis with Rocephin and azithromycin. Troponin was negative. Patient was hypoxic. Placed on nasal cannula. Rhinovirus is positive. Discussed case with the hospitalist for further evaluation management treatment. Patient remained on nasal cannula throughout stay in the ER. Consults/Care Managements Discussions: Per MDM Triage Nursing notes reviewed. Limited review of prior medical records performed Vital Signs: reviewed and remarkable for no significant abnormalities Differential diagnosis: Differential diagnoses includes but is not limited to pneumonia, bronchitis, COPD/Asthma exacerbation, pneumothorax, pulmonary embolism, congestive heart failure, acute coronary syndrome ER treatment provided: See below Diagnostics interpreted by me include EKG and cardiac monitoring as listed below: -Cardiac Monitoring: An order was placed for continuous cardiac monitoring. The monitor shows a rate of 60 with sinus rhythm. -ECG: Sinus rhythm rate of 52 Normal axis No PVCs QTc 441 -Laboratory studies:Interpreted by me as stated above in MDM and shown below. Imaging studies: Xrays: As interpreted by me: Portable AP upright 1 view of the chest shows no focal M-Trate CTs show: CT angio of the chest as described above Procedures:none Critical Care: I have personally spent 33 minutes of critical care time in the direct management of this patient. This includes bedside care, interpretation of diagnostic studies, and testing, discussion with consultants, patient, and family members, and other required patient management activities. This 33 minutes is in excess of all separately billable procedures. Past Med/Surg History Problem List (Updated 02/21/25 @ 18:00 by Giuliano Lux DO) Acute hypoxic respiratory failure (Acute) Type 2 diabetes mellitus Insomnia GERD (gastroesophageal reflux disease) Severe persistent asthma Migraine History of pulmonary embolism Bronchitis (Acute) COPD exacerbation (Acute) Medical History (Updated 02/21/25 @ 18:00 by Giuliano Lux DO) History of opioid abuse Vomiting Vomiting Opioid withdrawal Opioid withdrawal Dental caries Dental caries Dehydration Dehydration COPD (chronic obstructive pulmonary disease) Constipation Constipation Opioid abuse Shoulder pain, right Shoulder pain, right Laceration of right hand Laceration of right hand Pain, dental Asthma exacerbation Sepsis Lactic acidosis EMIL (acute kidney injury) Acute hyponatremia Acute renal failure Abdominal pain Metabolic acidosis Abnormal CT of the abdomen Colitis Tobacco abuse URI (upper respiratory infection) PE (pulmonary embolism) (09/27/13) Surgical History No significant past surgical history Social History (Updated 02/21/25 @ 17:17 by NICOLE Crowley) Smoking Status: Current every day smoker Tobacco Type: Cigarettes packs per day: 0.5; Second Hand Exposure: No; Do You Dip or Chew Tobacco: No; Hx Alcohol Use: No Hx Substance Use: No Preferred Language: Panamanian Communication Ability: Effective District Service Manager Required: No Beliefs That Will Affect Care: None Current Living Situation: Family Current Living Situation Comment: BROTHER Other Information That Helps Us Care for You: No Feels Safe at Home: Yes Safety Concerns: Feels Safe At This Time Assistive Devices: None Allergies Allergies Allergy/AdvReac Type Severity Reaction Status Date / Time No Known Allergies Allergy Verified 02/21/25 14:28 Home Meds Home Medications Medication Instructions Recorded Confirmed methadone 10 mg/5 mL oral solution 141 mg PO DAILY 07/07/18 02/21/25 doxylamine succinate 25 mg tablet 25 mg PO HS 02/21/25 02/21/25 (Unisom (doxylamine)) omeprazole 20 mg tablet,delayed 20 mg PO DAILY 02/21/25 02/21/25 release Previous Rx's Medication Instructions Recorded blood sugar diagnostic (OneTouch #100 ea 09/02/23 Verio test strips) lancets 33 gauge (OneTouch Delica #100 ea 09/02/23 Plus Lancet) Results & Data (ED) Vital Signs Vital Signs - 24 hr 02/21/25 11:53 02/21/25 12:01 02/21/25 12:05 Temperature 36.3 C L Temperature Source Oral Pulse Rate 89 Pulse Rate [Right Finger] 78 Pulse Rhythm [Right Finger] Regular Pulse Strength [Right Finger] Normal Respiratory Rate 22 13 Respiratory Effort / Characteristics Non-Labored Spontaneous Non-Labored Non-Labored Respiratory Depth Normal Normal Respiratory Pattern Regular Blood Pressure 135/71 Blood Pressure [Right Arm] 140/65 Blood Pressure Mean 92 Blood Pressure Mean [Right Arm] 90 Blood Pressure Position [Right Arm] Lying Pulse Oximetry 91 90 Pulse Oximetry [Exercises] Pulse Oximetry [Recovery] Oxygen Delivery Method Room Air Room Air Oxygen Flow Rate Sepsis Recent Fever Within 48 Hours No Sepsis New/Unexplained Change in Mental Status No Sepsis Action Taken by Nursing No Action Required Oxygen Flow Rate - Titration Pulse Oximetry Post Tiitration 02/21/25 12:11 02/21/25 12:16 02/21/25 13:51 Temperature Temperature Source Pulse Rate 74 Pulse Rate [Right Finger] Pulse Rhythm [Right Finger] Pulse Strength [Right Finger] Respiratory Rate Respiratory Effort / Characteristics Respiratory Depth Respiratory Pattern Blood Pressure Blood Pressure [Right Arm] Blood Pressure Mean Blood Pressure Mean [Right Arm] Blood Pressure Position [Right Arm] Pulse Oximetry 90 Pulse Oximetry [Exercises] 90 Pulse Oximetry [Recovery] 90 Oxygen Delivery Method Room Air Room Air Oxygen Flow Rate Sepsis Recent Fever Within 48 Hours Sepsis New/Unexplained Change in Mental Status Sepsis Action Taken by Nursing Oxygen Flow Rate - Titration Pulse Oximetry Post Tiitration 02/21/25 14:03 02/21/25 14:07 02/21/25 16:00 Temperature Temperature Source Pulse Rate Pulse Rate [Right Finger] 81 81 Pulse Rhythm [Right Finger] Regular Pulse Strength [Right Finger] Normal Respiratory Rate 18 14 Respiratory Effort / Characteristics Non-Labored Non-Labored Spontaneous Respiratory Depth Normal Normal Respiratory Pattern Regular Blood Pressure Blood Pressure [Right Arm] 130/72 138/68 Blood Pressure Mean Blood Pressure Mean [Right Arm] 91 91 Blood Pressure Position [Right Arm] Lying Pulse Oximetry 88 L 88 L 93 Pulse Oximetry [Exercises] Pulse Oximetry [Recovery] Oxygen Delivery Method Room Air Room Air Nasal Cannula Nasal Cannula Oxygen Flow Rate 0 2 Sepsis Recent Fever Within 48 Hours Sepsis New/Unexplained Change in Mental Status Sepsis Action Taken by Nursing Oxygen Flow Rate - Titration 2 Pulse Oximetry Post Tiitration 91 02/21/25 16:16 02/21/25 17:52 Temperature Temperature Source Pulse Rate 88 Pulse Rate [Right Finger] 84 Pulse Rhythm [Right Finger] Pulse Strength [Right Finger] Respiratory Rate 17 Respiratory Effort / Characteristics Non-Labored Spontaneous Respiratory Depth Normal Respiratory Pattern Regular Blood Pressure Blood Pressure [Right Arm] 123/73 Blood Pressure Mean Blood Pressure Mean [Right Arm] 89 Blood Pressure Position [Right Arm] Pulse Oximetry 94 Pulse Oximetry [Exercises] Pulse Oximetry [Recovery] Oxygen Delivery Method Nasal Cannula Oxygen Flow Rate 2 Sepsis Recent Fever Within 48 Hours Sepsis New/Unexplained Change in Mental Status Sepsis Action Taken by Nursing Oxygen Flow Rate - Titration Pulse Oximetry Post Tiitration Laboratory Data 02/21/25 12:09 02/21/25 12:09 Lab Results 02/21/25 02/21/25 02/21/25 Range/Units 12:09 12:47 13:45 WBC 9.55 (4.8-10.8) K/ul RBC 5.37 (4.70-6.10) M/uL Hgb 16.6 (14.0-18.0) g/dl Hct 46.6 (42.0-52.0) % MCV 86.8 (80.0-100.0) fL MCH 30.9 (25.0-34.0) pg MCHC 35.6 (32.0-36.0) g/dL RDW Std Deviation 40.3 (36.4-46.3) fL RDW Coeff of Benny 13.0 (11.5-14.5) % Plt Count 187 (130-400) K/uL MPV 11.1 (9.4-12.4) fL Immature Gran % (Auto) 0.4 % Neut % (Auto) 50.1 % Lymph % (Auto) 37.7 % Pike % (Auto) 7.5 % Eos % (Auto) 3.1 % Baso % (Auto) 1.2 % Neut # (Auto) 4.78 (1.40-6.50) K/uL Lymph # (Auto) 3.60 H (1.20-3.40) K/uL Pike # (Auto) 0.72 H (0.11-0.59) K/uL Eos # (Auto) 0.30 (0.00-0.50) K/uL Baso # (Auto) 0.11 (0.00-0.20) K/uL Immature Gran # (Auto) 0.04 (0.01-0.20) K/uL VBG pH (7.36-7.41) VBG pCO2 (38-50) mmHg VBG pO2 mmHg VBG HCO3 mmol/L VBG O2 Saturation % VBG Base Excess mEq/L Sodium 131 L (136-145) mmol/L Potassium 3.6 (3.5-5.1) mmol/L Chloride 98 (98-107) mmol/L Carbon Dioxide 25 (21-32) mmol/L Anion Gap 8 (3-11) BUN 13 (6-23) mg/dl Creatinine 0.60 (0.6-1.4) mg/dl Est Cr Clr Drug Dosing 158.1 ml/min eGFR 116.15 BUN/Creatinine Ratio 21.7 H (10-20) Glucose 404 H* (70-99(Fasting)) mg/dl POC Glucose 390 H* (70-99) mg/dl Estimat Average Glucose 326 mg/dl Hemoglobin A1c 13.0 H (4.5-5.6) % Calcium 9.4 (8.6-10.3) mg/dl Total Bilirubin 0.8 (0.2-1.0) mg/dl AST 60 H (13-39) U/L ALT 63 H (7-52) U/L Alkaline Phosphatase 126 H (34-104) U/L Troponin I High Sens 5.7 (0-20) pg/ml Total Protein 8.3 (6.0-8.3) gm/dl Albumin 3.7 (3.4-5.0) gm/dl Globulin 4.6 H (2.5-4.0) gm/dl Albumin/Globulin Ratio 0.8 L (0.9-2) Lipase 14 (11-82) U/L Adenovirus (PCR) Not Detected (NotDetected) B. pertussis DNA (PCR) Not Detected (NotDetected) B.parapertussis DNA PCR Not Detected (NotDetected) C. pneumoniae DNA (PCR) Not Detected (NotDetected) Coronavirus OC43 (PCR) Not Detected (NotDetected) Coronavirus HKU1 (PCR) Not Detected (NotDetected) Coronavirus 229E (PCR) Not Detected (NotDetected) SARS-CoV-2 (PCR) Not Detected (NotDetected) Coronavirus NL63 (PCR) Not Detected (NotDetected) Human Metapneumovir PCR Not Detected (NotDetected) Influenza Type A (PCR) Not Detected (NotDetected) Influenza Type B (PCR) Not Detected (NotDetected) M. pneumoniae (PCR) Not Detected (NotDetected) Parainfluenza 1 (PCR) Not Detected (NotDetected) Parainfluenza 2 (PCR) Not Detected (NotDetected) Parainfluenza 3 (PCR) Not Detected (NotDetected) Parainfluenza 4 (PCR) Not Detected (NotDetected) RSV (PCR) Not Detected (NotDetected) Entero/Rhino (PCR) DETECTED A (NotDetected) 02/21/25 02/21/25 Range/Units 16:36 16:43 WBC (4.8-10.8) K/ul RBC (4.70-6.10) M/uL Hgb (14.0-18.0) g/dl Hct (42.0-52.0) % MCV (80.0-100.0) fL MCH (25.0-34.0) pg MCHC (32.0-36.0) g/dL RDW Std Deviation (36.4-46.3) fL RDW Coeff of Benny (11.5-14.5) % Plt Count (130-400) K/uL MPV (9.4-12.4) fL Immature Gran % (Auto) % Neut % (Auto) % Lymph % (Auto) % Pike % (Auto) % Eos % (Auto) % Baso % (Auto) % Neut # (Auto) (1.40-6.50) K/uL Lymph # (Auto) (1.20-3.40) K/uL Pike # (Auto) (0.11-0.59) K/uL Eos # (Auto) (0.00-0.50) K/uL Baso # (Auto) (0.00-0.20) K/uL Immature Gran # (Auto) (0.01-0.20) K/uL VBG pH 7.37 (7.36-7.41) VBG pCO2 41 (38-50) mmHg VBG pO2 48 mmHg VBG HCO3 24 mmol/L VBG O2 Saturation 85.2 % VBG Base Excess -1.5 mEq/L Sodium (136-145) mmol/L Potassium (3.5-5.1) mmol/L Chloride (98-107) mmol/L Carbon Dioxide (21-32) mmol/L Anion Gap (3-11) BUN (6-23) mg/dl Creatinine (0.6-1.4) mg/dl Est Cr Clr Drug Dosing ml/min eGFR BUN/Creatinine Ratio (10-20) Glucose (70-99(Fasting)) mg/dl POC Glucose 409 H* (70-99) mg/dl Estimat Average Glucose mg/dl Hemoglobin A1c (4.5-5.6) % Calcium (8.6-10.3) mg/dl Total Bilirubin (0.2-1.0) mg/dl AST (13-39) U/L ALT (7-52) U/L Alkaline Phosphatase (34-104) U/L Troponin I High Sens (0-20) pg/ml Total Protein (6.0-8.3) gm/dl Albumin (3.4-5.0) gm/dl Globulin (2.5-4.0) gm/dl Albumin/Globulin Ratio (0.9-2) Lipase (11-82) U/L Adenovirus (PCR) (NotDetected) B. pertussis DNA (PCR) (NotDetected) B.parapertussis DNA PCR (NotDetected) C. pneumoniae DNA (PCR) (NotDetected) Coronavirus OC43 (PCR) (NotDetected) Coronavirus HKU1 (PCR) (NotDetected) Coronavirus 229E (PCR) (NotDetected) SARS-CoV-2 (PCR) (NotDetected) Coronavirus NL63 (PCR) (NotDetected) Human Metapneumovir PCR (NotDetected) Influenza Type A (PCR) (NotDetected) Influenza Type B (PCR) (NotDetected) M. pneumoniae (PCR) (NotDetected) Parainfluenza 1 (PCR) (NotDetected) Parainfluenza 2 (PCR) (NotDetected) Parainfluenza 3 (PCR) (NotDetected) Parainfluenza 4 (PCR) (NotDetected) RSV (PCR) (NotDetected) Entero/Rhino (PCR) (NotDetected) Administered Medications Discontinued Medications Albuterol (Albut/Ipratrop 3mg/0.5mg Neb 3 Ml Vial) 9 ml NEB NOW STA; Protocol Stop: 02/21/25 12:36 Last Admin: 02/21/25 12:40 Dose: 9 ml Documented By: SHB Azithromycin (Azithromycin 250 Mg Tab) 500 mg PO NOW ONE Stop: 02/21/25 14:40 Last Admin: 02/21/25 15:28 Dose: 500 mg Documented By: CATHY Sodium Chloride (Nss) 500 mls @ 999 mls/hr IV .Q31M ONE Stop: 02/21/25 13:07 Last Infusion: 02/21/25 13:21 Dose: Infused Documented By: Admin: 02/21/25 12:43 Dose: 999 mls/hr Documented By: DAVID Sodium Chloride (Nss) 1,000 mls @ 999 mls/hr IV .Q1H1M ONE Stop: 02/21/25 14:41 Last Infusion: 02/21/25 15:36 Dose: Infused Documented By: Admin: 02/21/25 13:55 Dose: 999 mls/hr Documented By: DAVID Ceftriaxone Sodium (Rocephin) 2,000 mg in 50 mls @ 100 mls/hr IV NOW STA Stop: 02/21/25 14:13 Last Infusion: 02/21/25 15:04 Dose: Infused Documented By: Admin: 02/21/25 13:55 Dose: 100 mls/hr Documented By: DAVID Insulin Human Regular (Novolin-R Insulin Per Unit Charge) 8 units IV NOW STA Stop: 02/21/25 14:40 Last Admin: 02/21/25 15:28 Dose: 8 units Documented By: CATHY Co-signed By: RAFFAELE Ioversol (Optiray 320 125ml) 64 ml IV ONCE ONE Stop: 02/21/25 13:30 Last Admin: 02/21/25 13:30 Dose: 64 ml Documented By: MARTHA Methylprednisolone (Methylprednisolone 125 Mg/2 Ml Vial) 60 mg IV NOW STA Stop: 02/21/25 12:36 Last Admin: 02/21/25 12:40 Dose: 60 mg Documented By: DAVID Imaging Data Radiologist's Impression: Chest X-Ray 02/21/25 12:14 EXAM: Radiograph of the Chest 1 View INDICATION: Chest pain TECHNIQUE: Frontal view of the chest. COMPARISON: 02/23/2024 FINDINGS: Lungs and pleural spaces: No consolidation or pulmonary edema. No pleural effusion or pneumothorax. Heart: Shape and configuration within normal limits allowing for technique. Mediastinum: Normal contour. Bones/joints: No fracture, erosion or dislocation. Soft tissues: No abnormality noted. No radiopaque foreign body noted. Upper abdomen: No abnormality noted. IMPRESSION: No abnormality noted. ACT 112: N/A Electronically signed by Minerva Cobian 02-21-2025 12:44 PM Chest CTA 02/21/25 12:37 EXAM: CT Angiography Chest With Intravenous Contrast INDICATION: Chest pain and shortness of breath TECHNIQUE: Axial computed tomographic angiography images of the chest with intravenous contrast. Sagittal and coronal reformatted images were created and reviewed. This CT exam was performed using one or more of the following dose reduction techniques: automated exposure control, adjustment of the mA and/or kV according to patient size, and/or use of iterative reconstruction technique. MIP reconstructed images were created and reviewed. CONTRAST: 64ml of Optiray 320 was administered intravenously. COMPARISON: 08/29/2023 FINDINGS: Pulmonary arteries: No abnormality noted. No pulmonary embolism. Aorta: No aneurysm or dissection. Lungs and pleural spaces: There is diffuse airway thickening and new reticulonodular interstitial changes. Centrilobular and paraseptal emphysema noted without dominant bulla or bleb. No consolidation or pulmonary edema. No pleural effusion or pneumothorax. Heart: No abnormality noted. No cardiomegaly. No significant pericardial effusion. No evidence of RV dysfunction. Bones/joints: No acute or atypical chronic changes. Soft tissues: No abnormality noted. Lymph nodes: Stable small reactive lateral aortic nodes. There are prominent upper normal-sized bilateral hilar nodes. Liver: Stable cirrhotic appearance of the visualized liver. IMPRESSION: 1. Bronchitis and generalized reticular nodular pneumonitis. 2. No pulmonary embolus noted. 3. Cirrhotic appearance of the liver. ACT 112: N/A Electronically signed by Minerva Cobian 02-21-2025 13:39 PM Discharge Plan Visit Data Chief Complaint: Respiratory Problems Stated Complaint: CAN'T BREATHE ED Provider: Giuliano Lux Discharge Problem: Acute hypoxic respiratory failure, Bronchitis, COPD exacerbation Condition: Serious Forms Stand Alone Forms: My [facility] [employer] Prescriptions Prescriptions: No Action methadone 10 mg/5 mL Solution 141 mg PO DAILY Rx Instructions: [facility] [place] [place] OneTouch Verio test strips Strip See Rx Instructions .Route Qty: 100 0RF Rx Instructions: daily (DME) lancets [OneTouch Delica Plus Lancet] 33 gauge misc See Rx Instructions .Route Qty: 100 0RF Rx Instructions: daily Unisom (doxylamine) 25 mg Tablet 25 mg PO HS omeprazole 20 mg Tablet,Delayed Release (Dr/Ec) 20 mg PO DAILY Referrals Referrals: Aspen Salcedo CRNP [Primary Care Provider] -
[2025-02-21] MEDS: ALBUT/IPRATROP 3MG/0.5MG NEB 3 ML VIAL NEB STA (12:40)
[2025-02-21] MEDS: SODIUM CHLORIDE 0.9% 500 ML IV ONE (12:43)
--- NOTE | 2025-02-21 12:45 | XRay Report ---
EXAM: Radiograph of the Chest 1 View INDICATION: Chest pain TECHNIQUE: Frontal view of the chest. COMPARISON: 02/23/2024 FINDINGS: Lungs and pleural spaces: No consolidation or pulmonary edema. No pleural effusion or pneumothorax. Heart: Shape and configuration within normal limits allowing for technique. Mediastinum: Normal contour. Bones/joints: No fracture, erosion or dislocation. Soft tissues: No abnormality noted. No radiopaque foreign body noted. Upper abdomen: No abnormality noted. IMPRESSION: No abnormality noted. ACT 112: N/A Electronically signed by Minerva Cobian 02-21-2025 12:44 PM
[2025-02-21 12:55] LABS: Alanine Aminotransferase 63.0 U/L (7-52); Albumin Globulin Ratio 0.8 (0.9-2); Alkaline Phosphatase 126.0 U/L (34-104); Anion Gap 8.0 (3-11); Bilirubin,Total 0.8 mg/dl (0.2-1.0); Blood Urea Nitrogen 13.0 mg/dl (6-23); Calcium 9.4 mg/dl (8.6-10.3); Carbon Dioxide 25.0 mmol/L (21-32); Chloride 98.0 mmol/L (98-107); Creatinine Clr Calc Pharmacy 158.1 ml/min; Globulin 4.6 gm/dl (2.5-4.0); Glucose 404.0 mg/dl (70-99(Fasting)); Lipase 14.0 U/L (11-82); Potassium 3.6 mmol/L (3.5-5.1); Sodium 131.0 mmol/L (136-145); Total Protein 8.3 gm/dl (6.0-8.3)
[2025-02-21] MEDS: OPTIRAY 320 125ml IV ONE (13:30)
--- NOTE | 2025-02-21 13:40 | CT Scan Report ---
EXAM: CT Angiography Chest With Intravenous Contrast INDICATION: Chest pain and shortness of breath TECHNIQUE: Axial computed tomographic angiography images of the chest with intravenous contrast. Sagittal and coronal reformatted images were created and reviewed. This CT exam was performed using one or more of the following dose reduction techniques: automated exposure control, adjustment of the mA and/or kV according to patient size, and/or use of iterative reconstruction technique. MIP reconstructed images were created and reviewed. CONTRAST: 64ml of Optiray 320 was administered intravenously. COMPARISON: 08/29/2023 FINDINGS: Pulmonary arteries: No abnormality noted. No pulmonary embolism. Aorta: No aneurysm or dissection. Lungs and pleural spaces: There is diffuse airway thickening and new reticulonodular interstitial changes. Centrilobular and paraseptal emphysema noted without dominant bulla or bleb. No consolidation or pulmonary edema. No pleural effusion or pneumothorax. Heart: No abnormality noted. No cardiomegaly. No significant pericardial effusion. No evidence of RV dysfunction. Bones/joints: No acute or atypical chronic changes. Soft tissues: No abnormality noted. Lymph nodes: Stable small reactive lateral aortic nodes. There are prominent upper normal-sized bilateral hilar nodes. Liver: Stable cirrhotic appearance of the visualized liver. IMPRESSION: 1. Bronchitis and generalized reticular nodular pneumonitis. 2. No pulmonary embolus noted. 3. Cirrhotic appearance of the liver. ACT 112: N/A Electronically signed by Minerva Cobian 02-21-2025 13:39 PM
[2025-02-21 13:46] LABS: Chlamydia pneumoniae PCR Not Detected (NotDetected); Coronavirus 229E PCR Not Detected (NotDetected); Coronavirus CoV-2 (COVID19)PCR Not Detected (NotDetected); Coronavirus HKU1 PCR Not Detected (NotDetected); Coronavirus NL63 PCR Not Detected (NotDetected); Coronavirus OC43PCR Not Detected (NotDetected); Human Metapneumovirus PCR Not Detected (NotDetected); Parainfluenza Virus 1 PCR Not Detected (NotDetected); Parainfluenza Virus 2 PCR Not Detected (NotDetected); Parainfluenza Virus 3 PCR Not Detected (NotDetected); Parainfluenza Virus 4 PCR Not Detected (NotDetected); Respiratory Syncytial VirusPCR Not Detected (NotDetected); Rhinovirus/Enterovirus PCR DETECTED (NotDetected)
[2025-02-21] MEDS: SODIUM CHLORIDE 0.9% 1,000 ML IV ONE (13:55)
[2025-02-21] MEDS: cefTRIAXone SODIUM 2,000 MG/50 ML BAG IV STA (13:55)
--- NOTE | 2025-02-21 14:58 | History & Physical Report ---
Date of Service February 21, 2025 Assessment & Plan (1) Acute hypoxic respiratory failure: (2) COPD exacerbation: (3) Severe persistent asthma: (4) Bronchitis: (5) Type 2 diabetes mellitus: (6) GERD (gastroesophageal reflux disease): (7) Insomnia: (8) History of opioid abuse: Plan 54 year old male with PMH significant for COPD, GERD, insomnia, history of pulmonary embolism, history of opioid abuse on methadone, and type 2 diabetes who presented to the ED on 02/21/2025 with cough, congestion, and SOB x1 week who is being admitted for acute hypoxic respiratory failure secondary to COPD exacerbation and bronchitis. Acute hypoxic respiratory failure COPD exacerbation Severe persistent asthma Bronchitis Patient presented with x1 week productive cough, congestion, SOB O2 sats 88% on room air VBG WNL Biofire +rhino/enterovirus CT chest revealed bronchitis and pneumonitis Received albuterol neb, methylprednisolone, ceftriaxone, azithromycin in the ED Plan: Switch ceftriaxone to cefepime for pseudomonas coverage in setting of tobacco use Continue azithromycin until urine legionella results Sputum culture Scheduled xopenex and atrovent nebs q6hr Hypertonic saline q12hr IV solu-medrol 40mg q8hr Mucinex q12hr ISP and flutter valve Type 2 diabetes Elevated blood glucose Glucose 404 on admission A1C 13.0 Patient reports that he was discharged on metformin previous admission but does not take it BSG ACHS and SSI while inpatient Glycemic pharmacy consult Outpatient follow up Hyponatremia Na 131 on admission Likely secondary to dehydration Received 1.5L NSS in ED Recheck BMP in am' GERD Continue omeprazole Insomnia Continue unisom Liver cirrhosis Incidental finding on CT chest Transaminitis with AST 60, ALT 63, alk phos 126 Outpatient follow up Tobacco use Counseled on smoking cessation Nicotine patch History of opioid abuse Continue methadone Supplied by [facility] DVT Prophylaxis: SQ lovenox Code Status: FULL CODE - As per discussion at bedside with the patient. PCP: Aspen Salcedo Disposition: admit to [facility] Patient seen in collaboration with Dr Marcus. Please see addendum. I spent a total of 75 minutes coordinating, documenting and providing care for this patient excluding time spent in the performance of separately billed services or time spent by another provider/QHP. Admission and Anticipated Discharge Date Admission Date: 02/21/2025 History of Present Illness Chief Complaint: SOB Primary Care Provider: NICOLE Santillan 54 year old male with PMH significant for COPD, GERD, insomnia, history of pulmonary embolism, and type 2 diabetes who presented to the ED on 02/21/2025 with SOB x 1 week. Patient reports that he has been short of breath for the last week and it is getting progressively worse, occurring with exertion and at rest occasionally. He reports a productive cough with white phlegm, fever of 101 yesterday, sore throat, and head congestion. He notes his daughter was recently sick. He used an old Symbicort inhaler this morning because he does not have a current prescription for albuterol and reported no relief from that, which is why he sought evaluation. Patient admits that he has not been to the doctor in a few years. He denies chest pain, abdominal pain, N/V/D, dysuria, weakness. He smokes 1/2 pack of cigarettes per day. Currently living with his brother. Allergies Allergy/AdvReac Type Severity Reaction Status Date / Time No Known Allergies Allergy Verified 02/21/25 14:28 Home Medications Medication Instructions Recorded Confirmed Type methadone 10 mg/5 mL oral solution 141 mg PO DAILY 07/07/18 02/21/25 History blood sugar diagnostic (MyVRTouch #100 ea 09/02/23 Rx Verio test strips) lancets 33 gauge (OneTouch Delica #100 ea 09/02/23 Rx Plus Lancet) doxylamine succinate 25 mg tablet 25 mg PO HS 02/21/25 02/21/25 History (Unisom (doxylamine)) omeprazole 20 mg tablet,delayed 20 mg PO DAILY 02/21/25 02/21/25 History release Past Med/Surg History Problem List (Updated 02/21/25 @ 18:00 by Giuliano Lux DO) Acute hypoxic respiratory failure (Acute) Type 2 diabetes mellitus Insomnia GERD (gastroesophageal reflux disease) Severe persistent asthma Migraine History of pulmonary embolism Bronchitis (Acute) COPD exacerbation (Acute) Medical History (Updated 02/21/25 @ 18:00 by Giuliano Lux DO) History of opioid abuse Vomiting Vomiting Opioid withdrawal Opioid withdrawal Dental caries Dental caries Dehydration Dehydration COPD (chronic obstructive pulmonary disease) Constipation Constipation Opioid abuse Shoulder pain, right Shoulder pain, right Laceration of right hand Laceration of right hand Pain, dental Asthma exacerbation Sepsis Lactic acidosis EMIL (acute kidney injury) Acute hyponatremia Acute renal failure Abdominal pain Metabolic acidosis Abnormal CT of the abdomen Colitis Tobacco abuse URI (upper respiratory infection) PE (pulmonary embolism) (09/27/13) Surgical History No significant past surgical history Social History (Updated 02/21/25 @ 17:17 by NICOLE Crowley) Smoking Status: Current every day smoker Tobacco Type: Cigarettes packs per day: 0.5; Second Hand Exposure: No; Do You Dip or Chew Tobacco: No; Hx Alcohol Use: No Hx Substance Use: No Preferred Language: Portuguese Communication Ability: Effective Crew Attendant Required: No Beliefs That Will Affect Care: None Current Living Situation: Family Current Living Situation Comment: BROTHER Other Information That Helps Us Care for You: No Feels Safe at Home: Yes Safety Concerns: Feels Safe At This Time Assistive Devices: None Review of Systems Review of Systems: All systems reviewed & are unremarkable except as noted in HPI & below Physical Exam Physical Exam: General/Psych: WD/WN, sitting up in bed, NAD, conversing easily Head: normocephalic, atraumatic Eyes: normal inspection, PERRL, conjunctivae pink ENT: external ear and nose normal, oropharynx normal Neck: normal visual inspection, trachea midline Respiratory: normal respiratory effort, lungs with rhonchi and slight expiratory wheezing bilaterally, no accessory muscle use Cardiovascular: regular rate and rhythm, no murmur/rub/gallop, no JVD Extremities: no cyanosis or clubbing, normal peripheral pulses, no BLE edema Abdomen/GI: normal bowel sounds, soft, nontender, no hepatosplenomegaly Neurologic/MSK: A+Ox3, motor strength 5/5, moves all extremities Skin: no rashes, normal color, warm and dry Results & Data Results & Data Vital Signs (Past 12 Hours) Vital Signs Temp Pulse Pulse Resp BP BP Pulse Ox 02/21/25 14:07 88 L 02/21/25 14:03 81 18 130/72 88 L 02/21/25 13:51 02/21/25 12:16 90 02/21/25 12:11 74 02/21/25 12:05 78 13 140/65 90 02/21/25 11:53 36.3 C L 89 22 135/71 91 Pulse Ox Pulse Ox O2 Del Method O2 Flow Rate 02/21/25 14:07 Room Air, Nasal Cannula 0 02/21/25 14:03 Room Air 02/21/25 13:51 90 90 Room Air 02/21/25 12:16 Room Air 02/21/25 12:11 02/21/25 12:05 Room Air 02/21/25 11:53 Room Air Laboratory Results Short CBC 02/21/25 Range/Units 12:09 WBC 9.55 (4.8-10.8) K/ul Hgb 16.6 (14.0-18.0) g/dl Hct 46.6 (42.0-52.0) % Plt Count 187 (130-400) K/uL BMP 02/21/25 12:09 Sodium 131 L Potassium 3.6 Chloride 98 Carbon Dioxide 25 BUN 13 Creatinine 0.60 Glucose 404 H* Calcium 9.4 Liver Function 02/21/25 Range/Units 12:09 Total Bilirubin 0.8 (0.2-1.0) mg/dl AST 60 H (13-39) U/L ALT 63 H (7-52) U/L Alkaline Phosphatase 126 H (34-104) U/L Albumin 3.7 (3.4-5.0) gm/dl I have independently reviewed and interpreted patient's admitting labs including CBC, CMP. Diagnostic Findings Chest X-Ray 02/21/25 12:14 EXAM: Radiograph of the Chest 1 View INDICATION: Chest pain TECHNIQUE: Frontal view of the chest. COMPARISON: 02/23/2024 FINDINGS: Lungs and pleural spaces: No consolidation or pulmonary edema. No pleural effusion or pneumothorax. Heart: Shape and configuration within normal limits allowing for technique. Mediastinum: Normal contour. Bones/joints: No fracture, erosion or dislocation. Soft tissues: No abnormality noted. No radiopaque foreign body noted. Upper abdomen: No abnormality noted. IMPRESSION: No abnormality noted. ACT 112: N/A Electronically signed by Minerva Cobian 02-21-2025 12:44 PM Chest CTA 02/21/25 12:37 EXAM: CT Angiography Chest With Intravenous Contrast INDICATION: Chest pain and shortness of breath TECHNIQUE: Axial computed tomographic angiography images of the chest with intravenous contrast. Sagittal and coronal reformatted images were created and reviewed. This CT exam was performed using one or more of the following dose reduction techniques: automated exposure control, adjustment of the mA and/or kV according to patient size, and/or use of iterative reconstruction technique. MIP reconstructed images were created and reviewed. CONTRAST: 64ml of Optiray 320 was administered intravenously. COMPARISON: 08/29/2023 FINDINGS: Pulmonary arteries: No abnormality noted. No pulmonary embolism. Aorta: No aneurysm or dissection. Lungs and pleural spaces: There is diffuse airway thickening and new reticulonodular interstitial changes. Centrilobular and paraseptal emphysema noted without dominant bulla or bleb. No consolidation or pulmonary edema. No pleural effusion or pneumothorax. Heart: No abnormality noted. No cardiomegaly. No significant pericardial effusion. No evidence of RV dysfunction. Bones/joints: No acute or atypical chronic changes. Soft tissues: No abnormality noted. Lymph nodes: Stable small reactive lateral aortic nodes. There are prominent upper normal-sized bilateral hilar nodes. Liver: Stable cirrhotic appearance of the visualized liver. IMPRESSION: 1. Bronchitis and generalized reticular nodular pneumonitis. 2. No pulmonary embolus noted. 3. Cirrhotic appearance of the liver. ACT 112: N/A Electronically signed by Minerva Cobian 02-21-2025 13:39 PM Code Status & VTE Plan Code Status Full Code Supervising Physician Co-Signing Physician Notes Attending Addendum: Case reviewed with the advanced practitioner. I have personally performed a history and physical examination on the patient. I have reviewed the advanced practitioner's documentation on the date of service referenced in note, and I agree with, and take responsibility for the plan of care. please refer to her notes for full details patient seen and examined, records reviewed by myself as well on exam, patient seen resting in bed, sitting up, on 2 L of O2 via nasal cannula, not in distress, comfortable States he feels some improvement since admission and after nebulization treatments Reports productive cough, denies chest pain, active shortness of breath, dizziness, palpitations no other symptoms VS noted and reviewed oriented x 3, not in distress, speaks in sentences with no effort nor accessory muscle use normal rate, regular rhythm, no murmurs Scattered rhonchi with intermittent faint wheezing bilaterally, good air entry bilaterally non distended, soft, nontender no bipedal edema, erythema, warmth no neuro deficits all labs, imaging noted and reviewed ASSESSMENT AND PLAN Acute hypoxic respiratory failure secondary to COPD exacerbation, acute bronchitis, bilateral pneumonia Has been nonadherent to maintenance COPD medications currently on 2 L of O2 via nasal cannula VBG okay Respiratory panel positive for entero-/rhinovirus Follow-up sputum culture, urine Legionella Cefepime plus azithromycin Xopenex/Atrovent 4 times daily, Solu-Medrol 40 mg every 8 hours- Monitor blood glucose closely, Hypertonic saline twice daily Hyperglycemia Diabetes type 2 No anion, no metabolic acidosis Pharmacy glycemic control management ordered other diagnoses and plan of care as per advanced practitioner's notes I spent a total of 40 minutes coordinating, documenting, and providing care for this patient, excluding time spent in the performance of separately billed services or time spent by another provider/QHP. Obi Marcus MD
[2025-02-21] MEDS: NovoLIN-R INSULIN PER UNIT CHARGE IV STA (15:28)
[2025-02-21] MEDS: AZITHROMYCIN 250 MG TAB PO ONE (15:28)
[2025-02-21 16:02] LABS: Hemoglobin A1C 13.0 % (4.5-5.6)
[2025-02-21 16:50] LABS: Base Excess VBG -1.5 mEq/L; HCO3 VBG 24 mmol/L; Oxygen Saturation VBG 85.2 %; PCO2 VBG 41 mmHg (38-50); PO2 VBG 48 mmHg; pH VBG 7.37 (7.36-7.41)
[2025-02-21] MEDS ORDERED: GLUCOSE 10 TAB/TUBE PO PRN (18:14)
[2025-02-21] MEDS ORDERED: GLUCAGON FOR INJ 1 MG VIAL SQ PRN (18:14)
[2025-02-21] MEDS ORDERED: DEXTROSE 50% 50 ML SYRINGE IV PRN (18:14)
[2025-02-21] MEDS ORDERED: GLUCOSE 40% GEL 15 GM TUBE PO PRN (18:14)
[2025-02-21] MEDS ORDERED: CARBOHYDRATES FOR HYPOGLYCEMIA PO PRN (18:14)
[2025-02-21] MEDS ORDERED: PHARMACY GLYCEMIC MGMT CONSULT PRN (18:14)
[2025-02-21] MEDS: IPRATROPIUM BROMIDE NEB SOLN 0.02% 0.5MG/2.5ML VIAL NEB SCH (19:42)
[2025-02-21] MEDS: LEVALBUTEROL 1.25 MG/3 ML NEB NEB SCH (19:43)
[2025-02-21] MEDS: SODIUM CHLOR 7% 4 ML NEB NEB SCH (19:43)
[2025-02-21] MEDS: ENOXAPARIN INJ 40 MG/0.4 ML SYR SQ SCH (20:07)
[2025-02-21] MEDS: INSULIN ASPART PER UNIT CHARGE SC SCH ×2 (20:08→23:17)
[2025-02-21] MEDS: NICOTINE 7 MG/24 HR TDSY TD SCH (20:08)
[2025-02-21] MEDS: LANTUS PER UNIT CHARGE SC ONE (20:08)
[2025-02-21] MEDS: guaiFENesin 600 MG TABCR PO SCH (20:08)
[2025-02-21] MEDS: CEFEPIME 2000MG 2,000 MG/20 ML SYR IV SCH (20:10)
[2025-02-21] MEDS: ACETAMINOPHEN 325 MG TAB PO PRN (23:18)
[2025-02-22] MEDS: INSULIN ASPART PER UNIT CHARGE SC ONE (04:15)
[2025-02-22 05:49] LABS: Hematocrit (blood only) 42.9 % (42.0-52.0); Hemoglobin 15.5 g/dl (14.0-18.0); Mean Corpuscular Hemoglobin 31.2 pg (25.0-34.0); Mean Corpuscular Volume 86.3 fL (80.0-100.0); Platelet Count 161 K/uL (130-400); RDW Standard Deviation 39.5 fL (36.4-46.3); Red Blood Count 4.97 M/uL (4.70-6.10); White Blood Count 12.47 K/ul (4.8-10.8)
[2025-02-22 06:06] LABS: Anion Gap 7.0 (3-11); Blood Urea Nitrogen 14.0 mg/dl (6-23); Calcium 9.3 mg/dl (8.6-10.3); Carbon Dioxide 23.0 mmol/L (21-32); Chloride 101.0 mmol/L (98-107); Creatinine Clr Calc Pharmacy 197.6 ml/min; Glucose 283.0 mg/dl (70-99(Fasting)); Potassium 4.0 mmol/L (3.5-5.1); Sodium 131.0 mmol/L (136-145)
[2025-02-22] MEDS: METHADONE ORAL SOLN 2 MG/ML PO SCH (08:08)
[2025-02-22] MEDS: AZITHROMYCIN 250 MG TAB PO SCH (08:11)
[2025-02-22] MEDS: REMOVE NICODERM PATCH SCH (08:11)
[2025-02-22] MEDS: PATIENT'S OWN CONTROLLED MED 2 PO SCH (08:12)
[2025-02-22] MEDS: LANTUS PER UNIT CHARGE SC ONE ×2 (08:49→20:17)
--- NOTE | 2025-02-22 13:03 | Hospitalist Progress Note ---
Date of Service February 22, 2025 Assessment & Plan (1) Acute hypoxic respiratory failure: (2) COPD exacerbation: (3) Severe persistent asthma: (4) Bronchitis: (5) Type 2 diabetes mellitus: (6) GERD (gastroesophageal reflux disease): (7) Insomnia: (8) History of opioid abuse: Plan 54 year old male with PMH significant for COPD, GERD, insomnia, history of pulmonary embolism, history of opioid abuse on methadone, and type 2 diabetes who presented to the ED on 02/21/2025 with cough, congestion, and SOB x1 week who is being admitted for acute hypoxic respiratory failure secondary to COPD exacerbation and bronchitis. Acute hypoxic respiratory failure with hypoxia Acute bronchitis/bilateral pneumonia Acute COPD exacerbation Rhinovirus infection Medication noncompliance -Chest CTA:Bronchitis and generalized reticular nodular pneumonitis. No pulmonary embolus noted. 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 -Needs follow-up with pulmonology on discharge -Continue pulmonary hygiene -May need 2 step prior to discharge -Titrate down steroids as able Chronic hyponatremia Partly secondary to hyperglycemia, excess fluid intake Monitor sodium levels DM II Noncompliance HbA1c 13.0 Continue insulin per protocol Glycemic pharmacist consulted Will consult informatics educator as well Monitor blood glucose levels GERD Continue PPI Insomnia Continue unisom Abnormal CT abdomen Incidental finding of possible liver cirrhosis Needs follow-up as outpatient Tobacco use 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 History of opioid abuse Continue methadone Supplied by [facility] Px: SQ Lovenox Code Status: FULL CODE PCP: Aspen Salcedo Disposition: Home as able Admission and Anticipated Discharge Date Admission Date: February 21, 2025 Subjective Patient is seen and examined at bedside States feeling a lot better today Cough, dyspnea improving Saturating low 90s on 2 L supplemental oxygen Denies any chest pain, dizziness, nausea, vomiting, abdominal pain Eager to get discharged Review of Systems Review of Systems: All systems reviewed & are unremarkable except as noted in Subjective Physical Exam Physical Exam: Physical Exam: Vitals signs as noted above General Appearance:Moderately built and nourished, no apparent distress Head: normocephalic, Atraumatic Eyes: normal inspection, EOMI Neck: supple, Trachea midline Respiratory/Chest: Decreased breath sounds, scant wheezing, No accessory muscle use Cardiovascular: S1, S2, No murmur Abdomen/GI:Soft, Non tender, Bowel sounds present Extremities/Musculoskeletal:normal inspection, no edema Neurologic/Psych:AAOX3, grossly no focal neurological deficits Skin: normal color, warm Results & Data Results & Data Vital Signs (Past 12 Hours) Vital Signs Temp Pulse Pulse Resp BP Pulse Ox O2 Del Method 02/22/25 11:20 37.3 C 90 18 122/67 90 Nasal Cannula 02/22/25 10:18 Nasal Cannula 02/22/25 07:55 37.6 C H 72 20 112/69 91 Nasal Cannula 02/22/25 07:27 69 02/22/25 06:57 69 18 90 Nasal Cannula 02/22/25 04:29 37.1 C 71 20 119/57 L 92 Nasal Cannula O2 Flow Rate 02/22/25 11:20 2 02/22/25 10:18 2 02/22/25 07:55 2 02/22/25 07:27 02/22/25 06:57 2 02/22/25 04:29 2 Laboratory Results Short CBC 02/22/25 Range/Units 05:25 WBC 12.47 H (4.8-10.8) K/ul Hgb 15.5 (14.0-18.0) g/dl Hct 42.9 (42.0-52.0) % Plt Count 161 (130-400) K/uL BMP 02/21/25 02/22/25 12:09 05:25 Sodium 131 L 131 L Potassium 3.6 4.0 Chloride 98 101 Carbon Dioxide 25 23 BUN 13 14 Creatinine 0.60 0.48 L Glucose 404 H* 283 H Calcium 9.4 9.3 Liver Function 02/21/25 Range/Units 12:09 Total Bilirubin 0.8 (0.2-1.0) mg/dl AST 60 H (13-39) U/L ALT 63 H (7-52) U/L Alkaline Phosphatase 126 H (34-104) U/L Albumin 3.7 (3.4-5.0) gm/dl
--- NOTE | 2025-02-22 13:11 | Pharmacy Report ---
Pharmacy Glycemic Short Note 2 - Date of Service February 22, 2025 - Glycemic Short BSG Results (Last 24 hours): 02/21/25 02/21/25 02/21/25 13:45 16:36 18:16 Glucose POC Glucose 390 H* 409 H* 381 H* 02/21/25 02/21/25 02/22/25 19:42 23:11 04:11 Glucose POC Glucose 423 H* 305 H* 272 H 02/22/25 02/22/25 02/22/25 05:25 07:45 12:02 Glucose 283 H POC Glucose 286 H 314 H* 02/22/25 12:04 Glucose POC Glucose 318 H* OUTPATIENT ANTIDIABETIC REGIMEN: * n/a HbA1c: 13% (02/21/25) ASSESSMENT: * RS is a 54 year old male w/ acute hypoxic respiratory failure/COPD exacerbation * Pharmacy consulted for glycemic management due to steroid-induced hyperglycemia * Per H&P, patient was previously discharged with prescription for metformin, but he doesn't take it * Will likely require insulin as an outpatient based on HbA1c * Methylprednisolone 40 mg IV changed from q8h to q12h today * Patient with significant hyperglycemia thus far, likely due to inadequate initial insulin regimen to cover IV steroids * >300 mg/dL at lunchtime - will give one-time IV insulin bolus PLAN FOR INPATIENT GLYCEMIC CONTROL: * Basal insulin * Lantus 30 units SQ X 1 * Lantus 0-5-10 units SC HS x 1 (see EHR for details) * Reassess in AM * Bolus insulin * NovoLog per scale ACHS or Q6hrs while NPO * Goal Range: Low 110 mg/dL - High 140 mg/dL * Correction Factor: 20 mg/dL/unit * Nutritional / Prandial insulin per carb ratio of 1 unit per 6 grams CHO consumed
[2025-02-22] MEDS: INSULIN HUMAN REGULAR PER UNIT 9 UNITS in SYRINGE 8.91 ML IV ONE (13:19)
[2025-02-22] MEDS: MELATONIN 3 MG TAB PO PRN (21:12)
[2025-02-23] MEDS: CALCIUM CARBONATE 500 MG CHEWABLE TAB PO STA (01:23)
[2025-02-23 06:55] LABS: Hematocrit (blood only) 43.8 % (42.0-52.0); Hemoglobin 15.5 g/dl (14.0-18.0); Mean Corpuscular Hemoglobin 31.1 pg (25.0-34.0); Mean Corpuscular Volume 88.0 fL (80.0-100.0); Platelet Count 184 K/uL (130-400); RDW Standard Deviation 41.2 fL (36.4-46.3); Red Blood Count 4.98 M/uL (4.70-6.10); White Blood Count 15.52 K/ul (4.8-10.8)
[2025-02-23 07:25] LABS: Anion Gap 8.0 (3-11); Blood Urea Nitrogen 20.0 mg/dl (6-23); Calcium 9.4 mg/dl (8.6-10.3); Carbon Dioxide 25.0 mmol/L (21-32); Chloride 99.0 mmol/L (98-107); Creatinine Clr Calc Pharmacy 158.1 ml/min; Glucose 326.0 mg/dl (70-99(Fasting)); Magnesium 2.1 mg/dl (1.7-2.4); Potassium 4.5 mmol/L (3.5-5.1); Sodium 132.0 mmol/L (136-145)
[2025-02-23 08:11] VITALS: RESP 18
[2025-02-23] MEDS: LANTUS PER UNIT CHARGE SC ONE (09:16)
--- NOTE | 2025-02-23 10:22 | Electrocardiogram Report ---
Test Reason : Blood Pressure : */* mmHG Vent. Rate : 74 BPM Atrial Rate : 74 BPM P-R Int : 170 ms QRS Dur : 92 ms QT Int : 398 ms P-R-T Axes : 68 10 62 degrees QTcB Int : 441 ms Normal sinus rhythm Cannot rule out Inferior infarct (cited on or before 29-Aug-2023) Abnormal ECG When compared with ECG of 23-Feb-2024 13:31, No significant change was found Confirmed by Wai Ardon ([id number]) on 02/23/2025 10:22:06 AM Referred By: REFERRED SELF Confirmed By: Wai Ardon
[2025-02-23 11:10] VITALS: PULSE 70; TEMP 97.9; O2SAT 94
[2025-02-23] MEDS ORDERED: IPRATROPIUM BROMIDE NEB SOLN 0.02% 0.5MG/2.5ML VIAL NEB PRN (11:11)
[2025-02-23] MEDS ORDERED: LEVALBUTEROL 1.25 MG/3 ML NEB NEB PRN (11:14)
--- NOTE | 2025-02-23 12:33 | Hospitalist Progress Note ---
Date of Service February 23, 2025 Assessment & Plan (1) Acute hypoxic respiratory failure: (2) COPD exacerbation: (3) Severe persistent asthma: (4) Bronchitis: (5) Type 2 diabetes mellitus: (6) GERD (gastroesophageal reflux disease): (7) Insomnia: (8) History of opioid abuse: Plan 54 year old male with PMH significant for COPD, GERD, insomnia, history of pulmonary embolism, history of opioid abuse on methadone, and type 2 diabetes who presented to the ED on 02/21/2025 with cough, congestion, and SOB x1 week who is being admitted for acute hypoxic respiratory failure secondary to COPD exacerbation and bronchitis. Acute hypoxic respiratory failure with hypoxia Acute bronchitis/bilateral pneumonia Acute COPD exacerbation Rhinovirus infection Medication noncompliance -Chest CTA:Bronchitis and generalized reticular nodular pneumonitis. No pulmonary embolus noted. 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 Monitor blood glucose levels GERD Continue PPI Insomnia Continue unisom Abnormal CT abdomen Incidental finding of possible liver cirrhosis Needs follow-up as outpatient Tobacco use 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 History of opioid abuse Continue methadone [facility] Px: SQ Lovenox Code Status: FULL CODE PCP: Aspen Salcedo Disposition: Home Admission and Anticipated Discharge Date Admission Date: February 21, 2025 Subjective Patient is seen and examined at bedside Cough much improved Denies any dyspnea today Saturating well on room air Denies any chest pain, dizziness, nausea, vomiting, abdominal pain Plan to discharge home today Review of Systems Review of Systems: All systems reviewed & are unremarkable except as noted in Subjective Physical Exam Physical Exam: Physical Exam: Vitals signs as noted above General Appearance:Moderately built and nourished, no apparent distress Head: normocephalic, Atraumatic Eyes: normal inspection, EOMI Neck: supple, Trachea midline Respiratory/Chest: Decreased breath sounds, CTA, No accessory muscle use Cardiovascular: S1, S2, No murmur Abdomen/GI:Soft, Non tender, Bowel sounds present Extremities/Musculoskeletal:normal inspection, no edema Neurologic/Psych:AAOX3, grossly no focal neurological deficits Skin: normal color, warm Results & Data Results & Data Vital Signs (Past 12 Hours) Vital Signs Temp Pulse Pulse Resp BP Pulse Ox O2 Del Method 02/23/25 11:08 36.6 C 70 18 115/64 94 Room Air 02/23/25 09:15 Room Air 02/23/25 08:10 36.7 C 60 18 116/72 93 Room Air 02/23/25 07:27 77 02/23/25 07:06 62 17 93 Room Air 02/23/25 02:46 36.6 C 68 16 118/69 92 Room Air Laboratory Results Short CBC 02/23/25 Range/Units 06:07 WBC 15.52 H (4.8-10.8) K/ul Hgb 15.5 (14.0-18.0) g/dl Hct 43.8 (42.0-52.0) % Plt Count 184 (130-400) K/uL BMP 02/23/25 06:07 Sodium 132 L Potassium 4.5 Chloride 99 Carbon Dioxide 25 BUN 20 Creatinine 0.60 Glucose 326 H* Calcium 9.4
--- NOTE | 2025-02-23 13:04 | Discharge Summary ---
Date of Service February 23, 2025 Admission HPI Per Admitting Provider 54 year old male with PMH significant for COPD, GERD, insomnia, history of pulmonary embolism, and type 2 diabetes who presented to the ED on 02/21/2025 with SOB x 1 week. Patient reports that he has been short of breath for the last week and it is getting progressively worse, occurring with exertion and at rest occasionally. He reports a productive cough with white phlegm, fever of 101 yesterday, sore throat, and head congestion. He notes his daughter was recently sick. He used an old Symbicort inhaler this morning because he does not have a current prescription for albuterol and reported no relief from that, which is why he sought evaluation. Patient admits that he has not been to the doctor in a few years. He denies chest pain, abdominal pain, N/V/D, dysuria, weakness. He smokes 1/2 pack of cigarettes per day. Currently living with his brother. Admission Exam Per Admitting Provider General/Psych: WD/WN, sitting up in bed, NAD, conversing easily Head: normocephalic, atraumatic Eyes: normal inspection, PERRL, conjunctivae pink ENT: external ear and nose normal, oropharynx normal Neck: normal visual inspection, trachea midline Respiratory: normal respiratory effort, lungs with rhonchi and slight expiratory wheezing bilaterally, no accessory muscle use Cardiovascular: regular rate and rhythm, no murmur/rub/gallop, no JVD Extremities: no cyanosis or clubbing, normal peripheral pulses, no BLE edema Abdomen/GI: normal bowel sounds, soft, nontender, no hepatosplenomegaly Neurologic/MSK: A+Ox3, motor strength 5/5, moves all extremities Skin: no rashes, normal color, warm and dry Principal Diagnosis Acute hypoxic respiratory failure with hypoxia Acute bronchitis/bilateral pneumonia Acute COPD exacerbation Rhinovirus infection Uncontrolled diabetes mellitus Medication noncompliance Abnormal CT Abdomen Discharge Data Allergies Allergy/AdvReac Type Severity Reaction Status Date / Time No Known Allergies Allergy Verified 02/21/25 14:28 Consultations 02/21/25 14:41 ED Decision to Admit Stat Procedures Performed Laboratory Results WBC 15.52 K/ul (4.8-10.8) H 02/23/25 06:07 RBC 4.98 M/uL (4.70-6.10) 02/23/25 06:07 Hgb 15.5 g/dl (14.0-18.0) 02/23/25 06:07 Hct 43.8 % (42.0-52.0) 02/23/25 06:07 MCV 88.0 fL (80.0-100.0) 02/23/25 06:07 MCH 31.1 pg (25.0-34.0) 02/23/25 06:07 MCHC 35.4 g/dL (32.0-36.0) 02/23/25 06:07 RDW Std Deviation 41.2 fL (36.4-46.3) 02/23/25 06:07 RDW Coeff of Benny 12.7 % (11.5-14.5) 02/23/25 06:07 Plt Count 184 K/uL (130-400) 02/23/25 06:07 MPV 11.5 fL (9.4-12.4) 02/23/25 06:07 Immature Gran % (Auto) 0.4 % 02/21/25 12:09 Neut % (Auto) 50.1 % 02/21/25 12:09 Lymph % (Auto) 37.7 % 02/21/25 12:09 [place] % (Auto) 7.5 % 02/21/25 12:09 Eos % (Auto) 3.1 % 02/21/25 12:09 Baso % (Auto) 1.2 % 02/21/25 12:09 Neut # (Auto) 4.78 K/uL (1.40-6.50) 02/21/25 12:09 Lymph # (Auto) 3.60 K/uL (1.20-3.40) H 02/21/25 12:09 [place] # (Auto) 0.72 K/uL (0.11-0.59) H 02/21/25 12:09 Eos # (Auto) 0.30 K/uL (0.00-0.50) 02/21/25 12:09 Baso # (Auto) 0.11 K/uL (0.00-0.20) 02/21/25 12:09 Immature Gran # (Auto) 0.04 K/uL (0.01-0.20) 02/21/25 12:09 VBG pH 7.37 (7.36-7.41) 02/21/25 16:43 VBG pCO2 41 mmHg (38-50) 02/21/25 16:43 VBG pO2 48 mmHg 02/21/25 16:43 VBG HCO3 24 mmol/L 02/21/25 16:43 VBG O2 Saturation 85.2 % 02/21/25 16:43 VBG Base Excess -1.5 mEq/L 02/21/25 16:43 Sodium 132 mmol/L (136-145) L 02/23/25 06:07 Potassium 4.5 mmol/L (3.5-5.1) 02/23/25 06:07 Chloride 99 mmol/L (98-107) 02/23/25 06:07 Carbon Dioxide 25 mmol/L (21-32) 02/23/25 06:07 Anion Gap 8 (3-11) 02/23/25 06:07 BUN 20 mg/dl (6-23) 02/23/25 06:07 Creatinine 0.60 mg/dl (0.6-1.4) 02/23/25 06:07 Est Cr Clr Drug Dosing 158.1 ml/min 02/23/25 06:07 eGFR 116.15 02/23/25 06:07 BUN/Creatinine Ratio 33.3 (10-20) H 02/23/25 06:07 Glucose 326 mg/dl (70-99(Fasting)) H* 02/23/25 06:07 POC Glucose 286 mg/dl (70-99) H 02/23/25 11:52 Estimat Average Glucose 326 mg/dl 02/21/25 12:09 Hemoglobin A1c 13.0 % (4.5-5.6) H 02/21/25 12:09 Calcium 9.4 mg/dl (8.6-10.3) 02/23/25 06:07 Magnesium 2.1 mg/dl (1.7-2.4) 02/23/25 06:07 Total Bilirubin 0.8 mg/dl (0.2-1.0) 02/21/25 12:09 AST 60 U/L (13-39) H 02/21/25 12:09 ALT 63 U/L (7-52) H 02/21/25 12:09 Alkaline Phosphatase 126 U/L (34-104) H 02/21/25 12:09 Troponin I High Sens 5.7 pg/ml (0-20) 02/21/25 12:09 Total Protein 8.3 gm/dl (6.0-8.3) 02/21/25 12:09 Albumin 3.7 gm/dl (3.4-5.0) 02/21/25 12:09 Globulin 4.6 gm/dl (2.5-4.0) H 02/21/25 12:09 Albumin/Globulin Ratio 0.8 (0.9-2) L 02/21/25 12:09 Lipase 14 U/L (11-82) 02/21/25 12:09 Procalcitonin 0.10 ng/ml (0-0.5) 02/23/25 06:07 Nasal Screen MRSA (PCR) Negative (Negative) 02/23/25 Unknown Adenovirus (PCR) Not Detected (NotDetected) 02/21/25 12:47 B. pertussis DNA (PCR) Not Detected (NotDetected) 02/21/25 12:47 B.parapertussis DNA PCR Not Detected (NotDetected) 02/21/25 12:47 C. pneumoniae DNA (PCR) Not Detected (NotDetected) 02/21/25 12:47 Coronavirus OC43 (PCR) Not Detected (NotDetected) 02/21/25 12:47 Coronavirus HKU1 (PCR) Not Detected (NotDetected) 02/21/25 12:47 Coronavirus 229E (PCR) Not Detected (NotDetected) 02/21/25 12:47 SARS-CoV-2 (PCR) Not Detected (NotDetected) 02/21/25 12:47 Coronavirus NL63 (PCR) Not Detected (NotDetected) 02/21/25 12:47 Human Metapneumovir PCR Not Detected (NotDetected) 02/21/25 12:47 Influenza Type A (PCR) Not Detected (NotDetected) 02/21/25 12:47 Influenza Type B (PCR) Not Detected (NotDetected) 02/21/25 12:47 M. pneumoniae (PCR) Not Detected (NotDetected) 02/21/25 12:47 Parainfluenza 1 (PCR) Not Detected (NotDetected) 02/21/25 12:47 Parainfluenza 2 (PCR) Not Detected (NotDetected) 02/21/25 12:47 Parainfluenza 3 (PCR) Not Detected (NotDetected) 02/21/25 12:47 Parainfluenza 4 (PCR) Not Detected (NotDetected) 02/21/25 12:47 RSV (PCR) Not Detected (NotDetected) 02/21/25 12:47 Entero/Rhino (PCR) DETECTED (NotDetected) A 02/21/25 12:47 Impressions Chest X-Ray 02/21/25 12:14 EXAM: Radiograph of the Chest 1 View INDICATION: Chest pain TECHNIQUE: Frontal view of the chest. COMPARISON: 02/23/2024 FINDINGS: Lungs and pleural spaces: No consolidation or pulmonary edema. No pleural effusion or pneumothorax. Heart: Shape and configuration within normal limits allowing for technique. Mediastinum: Normal contour. Bones/joints: No fracture, erosion or dislocation. Soft tissues: No abnormality noted. No radiopaque foreign body noted. Upper abdomen: No abnormality noted. IMPRESSION: No abnormality noted. ACT 112: N/A Electronically signed by Minerva Cobian 02-21-2025 12:44 PM Chest CTA 02/21/25 12:37 EXAM: CT Angiography Chest With Intravenous Contrast INDICATION: Chest pain and shortness of breath TECHNIQUE: Axial computed tomographic angiography images of the chest with intravenous contrast. Sagittal and coronal reformatted images were created and reviewed. This CT exam was performed using one or more of the following dose reduction techniques: automated exposure control, adjustment of the mA and/or kV according to patient size, and/or use of iterative reconstruction technique. MIP reconstructed images were created and reviewed. CONTRAST: 64ml of Optiray 320 was administered intravenously. COMPARISON: 08/29/2023 FINDINGS: Pulmonary arteries: No abnormality noted. No pulmonary embolism. Aorta: No aneurysm or dissection. Lungs and pleural spaces: There is diffuse airway thickening and new reticulonodular interstitial changes. Centrilobular and paraseptal emphysema noted without dominant bulla or bleb. No consolidation or pulmonary edema. No pleural effusion or pneumothorax. Heart: No abnormality noted. No cardiomegaly. No significant pericardial effusion. No evidence of RV dysfunction. Bones/joints: No acute or atypical chronic changes. Soft tissues: No abnormality noted. Lymph nodes: Stable small reactive lateral aortic nodes. There are prominent upper normal-sized bilateral hilar nodes. Liver: Stable cirrhotic appearance of the visualized liver. IMPRESSION: 1. Bronchitis and generalized reticular nodular pneumonitis. 2. No pulmonary embolus noted. 3. Cirrhotic appearance of the liver. ACT 112: N/A Electronically signed by Minerva Cobian 02-21-2025 13:39 PM Ordered Studies 02/21/25 12:37 CT angio chest PE protocol Stat Hospital Course (1) Acute hypoxic respiratory failure: (2) COPD exacerbation: (3) Severe persistent asthma: (4) Bronchitis: (5) Type 2 diabetes mellitus: (6) GERD (gastroesophageal reflux disease): (7) Insomnia: (8) History of opioid abuse: Plan 54 year old male with PMH significant for COPD, GERD, insomnia, history of pulmonary embolism, history of opioid abuse on methadone, and type 2 diabetes who presented to the ED on 02/21/2025 with cough, congestion, and SOB x1 week who is being admitted for acute hypoxic respiratory failure secondary to COPD exacerbation and bronchitis. Acute hypoxic respiratory failure with hypoxia Acute bronchitis/bilateral pneumonia Acute COPD exacerbation Rhinovirus infection Medication noncompliance -Chest CTA:Bronchitis and generalized reticular nodular pneumonitis. No pulmonary embolus noted. 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 -Needs follow-up with pulmonology on discharge -Continue pulmonary hygiene Plan to discharge home today Chronic hyponatremia Partly secondary to hyperglycemia, excess fluid intake Monitor sodium levels DM II Noncompliance HbA1c 13.0 Continue insulin per protocol Glycemic pharmacist consulted ConsultED school vocational educator as well Monitor blood glucose levels GERD Continue PPI Insomnia Continue unisom Abnormal CT abdomen Incidental finding of possible liver cirrhosis Needs follow-up as outpatient Tobacco use Animal Nutritionist to quit smoking Nicotine patch History of opioid abuse Continue methadone Supplied by [facility] Px: SQ Lovenox Code Status: FULL CODE PCP: Aspen Salcedo Disposition: Home Total Time Total Time Spent Total Time Spent (In Minutes): 54 minutes Discharge Plan Discharge Items Patient Disposition: Home - Self-Care Reason For Visit: SOB Discharge Diagnosis: Acute hypoxic respiratory failure with hypoxia Acute bronchitis/bilateral pneumonia Acute COPD exacerbation Rhinovirus infection Uncontrolled diabetes mellitus Medication noncompliance Abnormal CT Abdomen Condition on Discharge: Serious Activity: Per Instructions section Exercise/Sports: Wait until after follow-up appointment Non-emergency contact: Primary Care Provider and Extension Course Coordinator Call non-emergency contact if: you have any medication questions, your symptoms worsen, your pain is concerning for you and you have a fever Follow-up/Referrals: Aspen Salcedo CRNP [Primary Care Provider] - (Date & Time 02/27/2025 11:00 AM Provider: Aspen Salcedo CRNP [facility]) Diet: Carb Consistent or DM2 Diet Texture: Easy to Chew Addtl Attending Provider Instructions: -- Follow-up with your primary care physician Aspen RIVERA on 02/27/2025 11:00 AM as scheduled --Follow-up with your tip scourer in 3 to 4 weeks as advised --Monitor your blood glucose levels and take medications regularly as advised. Discuss with your primary care physician for further adjustment of medications as needed to manage your diabetes mellitus. --Complete the antibiotic course Augmentin as prescribed for pneumonia --Your CT abdomen showed findings suggestive of liver cirrhosis. Further management to be determined as outpatient by your physician. --Quit smoking tobacco as advised. Seek immediate medical attention if your symptoms reoccur or worsen Please review medication list provided on discharge for any medication changes as instructed. Please call if you have any questions or problems. You can reach a [facility] hospitalist on duty at [facility] 24 hours a day by calling [phone] Pending Studies at Discharge: No Stand-Alone Forms: My [facility], Smoking Cessation Medications and DC Order Prescriptions: New azithromycin 250 mg Tablet 250 mg PO QAM Qty: 3 0RF prednisone 20 mg Tablet 20 mg PO DAILY Qty: 3 0RF amoxicillin-pot clavulanate 875-125 mg Tablet 1 tab PO BIDM Qty: 10 0RF fluticasone furoate-vilanterol [Breo Ellipta] 100-25 mcg/dose blister with device 1 inh inhalation DAILY Qty: 60 1RF albuterol sulfate [Ventolin HFA] 90 mcg/actuation HFA aerosol inhaler 2 inh inhalation Q6H PRN (Reason: shortness of breath or wheezing) Qty: 8.5 2RF insulin glargine [Lantus Solostar U-100 Insulin] 100 unit/mL (3 mL) insulin pen 10 unit subcut DAILY Qty: 15 1RF metformin 500 mg tablet 500 mg PO BID Qty: 60 1RF (DME) pen needle, diabetic [Pen Needle] 32 gauge x 5/32" needle See Rx Instructions .Route Qty: 100 1RF Rx Instructions: Once a day as directed (DME) blood-glucose meter Misc See Rx Instructions .Route Qty: 1 0RF Rx Instructions: As directed (DME) OneTouch Verio test strips Strip See Rx Instructions .Route Qty: 100 1RF Rx Instructions: Check three times a day as directed (DME) lancets 33 gauge misc See Rx Instructions .Route Qty: 100 1RF Rx Instructions: Check three times a day as directed Continued methadone 10 mg/5 mL Solution 141 mg PO DAILY Rx Instructions: [facility] (DME) OneTouch Verio test strips Strip See Rx Instructions .Route Qty: 100 0RF Rx Instructions: daily (DME) lancets [OneTouch Delica Plus Lancet] 33 gauge misc See Rx Instructions .Route Qty: 100 0RF Rx Instructions: daily Unisom (doxylamine) 25 mg Tablet 25 mg PO HS omeprazole 20 mg Tablet,Delayed Release (Dr/Ec) 20 mg PO DAILY Discharge Orders: Discharge Order (Routine); Ordered 02/23/25 Ordered By: Micky Nuñez Admission Data Admit Date/Time: 02/21/25 16:43 Attending Provider: Micky Nuñez Admit Provider: Obi Marcus Primary Care Provider: Aspen Salcedo Other Providers: Obi Marcus
[2025-02-23 13:52] VITALS: BP 114/70
[2025-02-23] MEDS ORDERED: AMOXICILLIN/CLAVULANATE 875 MG TAB PO SCH (17:00)
[2025-02-23] MEDS ORDERED: AMOXICILLIN 875 MG TAB PO SCH (17:00)
[2025-02-23] MEDS ORDERED: LEVALBUTEROL 1.25 MG/3 ML NEB NEB SCH (19:00)
[2025-02-23] MEDS ORDERED: IPRATROPIUM BROMIDE NEB SOLN 0.02% 0.5MG/2.5ML VIAL NEB SCH (19:00)
[2025-02-24] MEDS ORDERED: predniSONE 20 MG TAB PO SCH (09:00)
== END 2025-02-23 15:23 | disposition home or self-care (01) | DRG 189 ==
LOC: ED 11:48 → 2N 16:43 → SUATTDRO 16:43 → 2N 18:08